=== PATIENT | male | born 1960 | race Caucasian/White ===

== ENCOUNTER 2025-01-28 09:11 | Emergency (ER) | payer OTHER, SELFPAY ==
[2025-01-28 09:12] VITALS: BP 145/92
[2025-01-28 10:19] VITALS: BMI 24.5
--- NOTE | 2025-01-28 10:20 | ED.GENMED ---
History of Present Illness
General
Chief Complaint: Abdominal Symptoms
Source: patient
Exam Limitations: none
Time Seen by Provider: 01/28/25 09:37
Nursing documentation reviewed up to this point in time: agreed with
History of Present Illness
History of Present Illness:
64-year-old male presenting to the emergency department today with concerns of nausea and vomiting over the past 2 weeks ever since he broke up with his girlfriend which she claims caused a lot of anxiety and stress. Denies any diarrhea no chest
pain or shortness of breath no fevers.
Review of Systems
Review of Systems
Allergies reviewed?: Yes
All Other Systems: ROS reviewed and negative except as documented in HPI and ROS
Phy Exam
Physical Exam
Physical Exam:
GENERAL: Alert , in no apparent distress
EYE: pupils equal and reactive
NECK: Supple, no significant adenopathy.
ENT: o/p clr, mmm.
CARDIAC: Regular rate and rhythm .
LUNGS: Clear breath sounds bilaterally, no acute respiratory distress, no wheezes/rales/rhonchi
ABDOMEN: Soft, without focal tenderness, no r/g, no cvat
NEUROLOGICAL: Alert and oriented, no focal neuro deficits
SKIN: Warm and dry, skin intact.
MUSCULOSKELETAL: No edema, well perfused.
PSYCH: Normal and appropriate interaction.
Course
Orders/Labs/Results
Orders:
Orders
01/28/25 09:54
0.9% Sodium Chloride 1000 ml [Nss] 1,000 ml IV BOLUS
Famotidine [Pepcid] 20 mg IV NOW STA
Ondansetron Injectable [Zofran] 4 mg IV NOW STA
01/28/25 10:23
Complete Blood Count/With Diff Urgent
Comprehensive Metabolic Panel Urgent
Lipase Urgent
01/28/25 12:47
Urinalysis Reflex To Culture Urgent
Date Specimen was Collected: 01/28/25
Time Specimen was Collected: 11:43
Urine Microscopic Reflex Cult Urgent
01/28/25 12:52
US Abdomen Complete/Upper Urgent
Comment:
Reason For Exam: vomiting, elevated bili
Abnormal Lab Results
01/28/25 01/28/25
10:23 12:47
RBC 3.93 L 10^6/uL
(4.70-6.10)
Hct 37.7 L %
(39.0-52.0)
MCV 95.9 H fL
(80.0-94.0)
MCH 34.9 H pg
(27.0-31.0)
Plt Count 103 L 10^3/uL
(130-400)
MPV 11.0 H fL
(7.4-10.4)
Abs Immat Gran (auto) 0.1 H 10^3/uL
(0-0.05)
Absolute Lymphs (auto) 0.7 L 10^3/uL
(1.2-3.4)
Absolute Monos (auto) 1.0 H 10^3/uL
(0.1-0.6)
Immature Gran % 0.6 H %
(0-0.5)
Neutrophils % 78.6 H %
(42.2-75.2)
Lymphocytes % 8.2 L %
(20.5-51.1)
Monocytes % 12.0 H %
(1.7-9.3)
Sodium 134 L mmol/L
(135-145)
Chloride 94 L mmol/L
(98-107)
Total Bilirubin 2.4 H mg/dl
(0.2-1.3)
AST 125 H U/L
(17-59)
Urine Ketones 1+ A
(Negative)
Urine Urobilinogen 4+ A
(Neg - 1+)
Urine Albumin (Reflex) 2+ A
(Neg - Trace)
01/28/25 10:23
01/28/25 10:23
Vital Signs
Initial and Last Documented VS:
Initial Vital Signs
Temp Pulse Resp BP Pulse Ox
98.6 F 63 16 145/92 98
01/28/25 09:12 01/28/25 09:12 01/28/25 09:12 01/28/25 09:12 01/28/25 09:12
Last Documented Vital Signs
Temp Pulse Resp BP Pulse Ox
98.6 F 63 16 161/97 96
01/28/25 09:12 01/28/25 09:12 01/28/25 09:12 01/28/25 10:27 01/28/25 11:30
MDM/Problems Addressed
MDM/Problems Addressed:
64-year-old male presenting to the emergency department today with concerns of 2 weeks of nausea and decreased oral intake. No abdominal pain no chest pain or shortness of breath no fevers. Initial vital signs normal. Patient no distress no
reproducible pain to the abdomen. Labs without emergent findings other than slightly elevated bilirubin level. Ultrasound was performed that did not show any emergent findings. He does appear stable for outpatient follow-up well-appearing
throughout ER stay. Return precautions given.
*Critical Care Note
Total Time (30-74mins, 75-104mins- exclusive of procedures): Not Applicable
ED Attending Note
-
Portions of this chart may have been created with voice recognition software.� Occasional wrong word or��sound alike� substitutions may have occurred due to the inherent limitations of voice recognition software.
Discharge Plan
Departure
Patient Disposition: Home (Routine Discharge)
Date of Disposition: 01/28/25
Time of Disposition: 15:12
Patient with high blood pressure during this ER visit?: No
Condition: Good
Covid-19: Not Applicable
Discharge Problem:
Vomiting
Instructions: Nausea and Vomiting, Adult (DC)
Referrals:
Andrew Perez MD [Family Provider, [facility]]
Activity Restrictions/Additional Instructions:
You came to the emergency department today with concerns of GI symptoms. Here you have a reassuring assessment. Please follow closely with your primary care doctor. Return for any worsening, new or concerning symptoms.
Interventions
Interventions:
*Risk Screen - Suicide Last Done: 01/28/25 09:14
*General Assessment Last Done: 01/28/25 09:14
*Neglect/Abuse Screening Last Done: 01/28/25 09:14
*ED- Fall Risk Assessment Last Done: 01/28/25 10:20
*ED COVID-19 Vaccine History Last Done: 01/28/25 10:20
EE-Hcvrvs-Ofowkqfrzi Assessment Last Done: 01/28/25 10:20
Discharge Date and Time
Print Language: DJIBOUTIAN
[2025-01-28] MEDS: NSS 1000 IV (10:24)
[2025-01-28] MEDS: ZOFRAN 4 MG IV (10:25)
[2025-01-28] MEDS: PEPCID 20 MG IV (10:25)
[2025-01-28 10:27] VITALS: BP 161/97
[2025-01-28 10:43] LABS: % Basophils 0.5 % (0-2); % Eosinophils 0.1 % (0-6); % Immature Granulocytes 0.6 % (0-0.5); % Lymphocytes 8.2 % (20.5-51.1); % Neutrophils 78.6 % (42.2-75.2); Absolute Immature Granulocytes 0.1 10^3/uL (0-0.05); Absolute Lymphocytes 0.7 10^3/uL (1.2-3.4); Absolute Neutrophils 6.2 10^3/uL (1.4-6.5); Hematocrit 37.7 % (39.0-52.0); Hemoglobin 13.7 g/dL (13.0-18.0); Mean Corp Hgb Conc. 36.3 g/dL (33.0-37.0); Mean Corpuscular Hgb 34.9 pg (27.0-31.0); Mean Corpuscular Volume 95.9 fL (80.0-94.0); Nucleated Red Blood Cells % 0 % (-); Platelet Count 103 10^3/uL (130-400); Red Blood Cell Count 3.93 10^6/uL (4.70-6.10); Red Cell Dist. Width 12.5 % (11.5-14.5); White Blood Cell Count 7.9 10^3/uL (4.8-10.8)
[2025-01-28 10:57] LABS: ALT (SGPT) 50 U/L (0-50); AST (SGOT) 125 U/L (17-59); Albumin 4.7 g/dl (3.5-5.0); Alkaline Phosphatase 52 U/L (38-126); Blood Urea Nitrogen 17 mg/dl (9-20); Calcium 9.1 mg/dl (8.4-10.2); Carbon Dioxide 28 mmol/L (22-30); Chloride 94 mmol/L (98-107); Estimated Creatinine Clearance 93 ml/min; Glucose 97 mg/dl (70-99); Lipase 166 U/L (23-300); Potassium 3.7 mmol/L (3.5-5.1); Sodium 134 mmol/L (135-145); Total Bilirubin 2.4 mg/dl (0.2-1.3); Total Protein 7.5 g/dl (6.3-8.2); eGFR > 60.00
[2025-01-28 13:01] LABS: Urine Albumin 2+ (Neg - Trace); Urine Bilirubin Negative (Negative); Urine Character Clear (Clear); Urine Color Yellow; Urine Glucose Negative (Negative); Urine Ketone 1+ (Negative); Urine Leukocyte Negative (Negative); Urine Nitrite Negative (Negative); Urine Occult Blood Negative (Negative); Urine Urobilinogen 4+ (Neg - 1+)
[2025-01-28 13:20] LABS: Urine Red Blood Cell 0-2 /HPF (0-2); Urine Squamous Cell 0-2 /LPF (Few); Urine White Cell 0-2 /HPF (0-5)
== END 2025-01-28 15:18 | disposition home or self-care (01) ==
LOC: EMR 09:11
PROVIDERS: Physician Assistant; EMERGENCY PHYSICIAN Emergency Medicine; FAMILY PHYSICIAN Family Medicine
DX: R11.2 Nausea with vomiting, unspecified (principal); R17 Unspecified jaundice
CPT/HCPCS: 96374; 96375; 96361; 99284; 76700; 80053; 81003; 81015; 83690; 85025

== ENCOUNTER 2025-02-12 13:08 | Inpatient (IN) | payer OTHER, SELFPAY ==
[2025-02-12] VITALS (41 sets, daily range): BP systolic 109–175; BP diastolic 78–129; PULSE 2–176
[2025-02-12] MEDS: CARDIZEM 5 MG IV (11:21)
--- NOTE | 2025-02-12 11:22 | ED.GENMED ---
History of Present Illness
General
Chief Complaint: Breathing Problem
Source: patient
Exam Limitations: none
Time Seen by Provider: 02/12/25 11:19
Nursing documentation reviewed up to this point in time: agreed with
History of Present Illness
History of Present Illness:
Note:
CHIEF COMPLAINT(S)
Shortness of breath.
HISTORY OF PRESENT ILLNESS
The patient is a 64-year-old male with a history of vaping, who presents with acute onset shortness of breath that began overnight. The patient describes an inability to breathe comfortably, which prompted a call to emergency services. Initial
oxygen saturation was noted to be in the low 50s on room air, prompting administration by EMS of supplemental oxygen via a non-rebreather mask, resulting in improvement to 90%. Initially hypertensive, nitroglycerin drip improved breathing and blood
pressure. Coarse crackles were noted bilaterally upon chest auscultation. The patient reports recent symptoms consistent with a cold, including congestion, prior to this episode.
ADDITIONAL HISTORY OBTAINED FROM SOURCES OTHER THAN THE PATIENT
Per EMS, the patient was found with significant respiratory distress and hypertension following cold-like symptoms. Initial interventions included oxygen therapy and nitroglycerin administration.
REVIEW OF SYSTEMS
- Respiratory: Shortness of breath, improved with oxygen.
- Cardiovascular: Hypotension noted with improvement post-nitroglycerin.
- General: Cold-like symptoms preceding the acute episode.
PHYSICAL EXAM
-Physical Exam
General: Severe respiratory distress, ill-appearing
Neck: supple. no meningeal signs. normal posterior pharynx
Heart: s1/s2 irregular rhythm, tachycardia
HEENT: Pupils equal round reactive to light, EOMI
Lungs: Severe respiratory distress. Rales bilaterally
Abdomen: normal bowel sounds. not tender. no CVAT
Neuro: alert and oriented. no focal neurological deficits cranial nerves II through XII intact
Skin: no rash
Psychiatric: well kept. interactive and cooperative
Extremities: Bilateral tibial edema. no calf tenderness. negative homans. good distal pulses
DIFFERENTIAL DIAGNOSIS
The Differential Diagnosis includes, in no particular order and is not limited to:
- Acute exacerbation of chronic obstructive pulmonary disease (COPD)
- Congestive heart failure
- Pneumonia
- Pulmonary embolism
- Acute myocardial infarction
- Asthma exacerbation
- Anaphylaxis
- Sepsis
- Pneumothorax
- Anxiety or panic attack
CARE-UPDATE
02/12/25 - 12:05
Oxygenation has improved with BiPAP. Heart rate shows mild improvement on the diltiazem drip. TASA is recorded at 5.1. Plan to administer 40 mg IV Lasix as ordered. Spent 35 minutes in critical care with the hospitalist.
Disposition:
SUMMARY OF ENCOUNTER
The patient, a 64-year-old male, presented with acute onset of shortness of breath overnight. Initial examination revealed significant respiratory distress and low oxygen saturation, which improved with supplemental oxygen.
DISPOSITION
The patient was admitted to the Intensive Care Unit for further management of respiratory failure and congestive heart failure exacerbation.
EMERGENCY TREATMENTS ADMINISTERED
Supplemental oxygen via a non-rebreather mask, administration of nitroglycerin, and IV Lasix. BiPAP was used to improve oxygenation.
REASSESSMENT
Oxygenation improved with BiPAP. Heart rate showed mild improvement on the diltiazem drip.
MEDICAL DECISION MAKING
Chronic conditions affecting care include history of smoking cessation. Differential diagnoses considered were acute exacerbation of COPD, congestive heart failure, pneumonia, and pulmonary embolism, among others.
CRITICAL CARE TIME
I provided 35 minutes of critical care time. Due to a high probability of clinically significant, life-threatening deterioration, I spent this time directly managing the patient�s acute respiratory failure and hypotension.
DIAGNOSIS
Congestive heart failure exacerbation, respiratory failure.
PATHOLOGIES TO CONSIDER
Acute myocardial infarction, sepsis, pulmonary embolism, pneumonia.
Phy Exam
Physical Exam
Physical Exam:
.
Scores
Heart Failure Risk
Heart Failure Risk Score: Yes
History of Stroke or TIA: No
History of intubation for respiratory distress: No
Heart rate on ED arrival >/= 110: Yes
SaO2 <90% on arrival on room air: Yes
HR >/=110 during 3min walk test (or too ill to perform test): Yes
ECG has acute ischemic changes: No
Urea >/=12mmol/L (BUN 33.6mg/dL): No
Serum CO2>/=35mmol/L: No
Troponin I or T elevated to ND Level (0.4mg/dL): No
NT-proBNP >/=5,000ng/L (5,000pg/ml): No
HF Risk Score: 3
Admission Status: HIGH RISK 15.9% Consider SNF treatment or admission to hospital
Course
Orders/Labs/Results
Orders:
Orders
02/12/25 Lunch
Cholesterol Lowering
Cholesterol Lowering: Sodium, 2 Gram
02/12/25 11:15
EKG [Electrocardiogram (*1)] Urgent
Reason for Study: Shortness of Breath
EKG- Treatment ONCE
02/12/25 11:16
Electrocardiogram (*1) Urgent
Reason for Study: Other
Other Reason for Exam: Respiratory Distress
Cardiac Monitoring- Treatment ONCE
EKG- Treatment ONCE
IV Insert/Care/Rem.- Treatment PRN
CR Chest Portable - 1 View Urgent
Comment:
Reason For Exam: sob
Reason Study Needs to be Portable: Unable to Transport
O2 Therapy [RESP] Urgent
Titrate/Wean O2 to maintain O2 sat greater than (%): 93
Special Instructions: TO MAINTAIN CONTINUOUS O2 SATS >/= 93%
Pulse Ox/cont/shift [RESP] Urgent
Quantity: 1
Special Instructions: continuous pulse ox
02/12/25 11:18
Complete Blood Count/With Diff Urgent
Comprehensive Metabolic Panel Urgent
Magnesium Urgent
Comment: ADD ON
NT-proBNP Urgent
Phosphorus Urgent
Comment: ADD ON
Troponin I Urgent
02/12/25 11:20
Nitroglycerin 100 mg/250 ml [Nitroglycerin Premix] 100 mg in 250 ml IV NOW
Initial dose in mcg/min, then titrate:: 50
Titrate to keep:: SBP < 160 mmHg
Titrate by mcg/min:: 5 mcg/min, may increase by 10 mcg/min if dose > 20 mcg/min
Frequency of titrations (minutes):: every 3-5 minutes
Maximum dose in mcg/min:: 200
Begin to taper infusion when:: Remained at goal for 2hrs
Taper by mcg/min:: 5 mcg/min
Frequency of taper (minutes) if patient maintains goal:: 30
Taper to off?: Yes
If infusion off & no longer maintaining goal:: Contact Provider
02/12/25 11:21
Diltiazem 125 mg/125 ml Nss [Cardizem] 125 mg in 125 ml IV NOW
Initial dose in mg/hr, then titrate:: 5
Titrate to keep:: Heart rate 80-100 bpm
Titrate by mg/hr:: 5 mg/hr
Frequency of titrations (minutes):: 15
Maximum dose in mg/hr:: 15
Diltiazem HCl [Cardizem] 5 mg IV NOW STA
02/12/25 11:38
ABG [Arterial Blood Gas] Urgent
%Oxygen/Room Air: 76
Comment: nrbr
02/12/25 12:04
Furosemide [Lasix] 40 mg IV NOW STA
02/12/25 12:36
Admit/Transfer Patient As Directed
Co-Sign Provider:
Level of Care: Inpatient admission
Assign to:: ICU
Physician / Group: [email or web address]
Diagnosis: acute hypoxic RF, acute HF, HTN emergency, fast AF, elevated TPNI,
Reason for Hospitalization: acute hypoxic RF, acute HF, HTN emergency, fast AF, elevated TPNI, mixed acidosis
Expected length of stay greater than two midnights?: Yes
ELOS- Estimated Length of Stay in days: 4
I certify the patient meets the requirements for IP care: Yes
02/12/25 12:38
Code Status As Directed
Resuscitation Status: Full Code
02/12/25 12:54
CARDIOLOGY CONSULT Routine
Consulting Provider: Rajiv Mcclendon
Was physician already notified: Yes
Reason for consult: acute HF , acute hypoxic RF
02/12/25 13:53
Electrocardiogram (*1) Q6H
Reason for Study: Chest Pain
Comment: at admission and Q6H x 2 (3 total), to be done with each troponin
Diltiazem 125 mg/125 ml Nss [Cardizem] 125 mg in 125 ml IV PER PROTOCOL
Currently infusing. Continue current dose and titrate:: Yes
Titrate to keep:: Heart rate 80-100 bpm
Titrate by mg/hr:: 5 mg/hr
Frequency of titrations (minutes):: 15
Maximum dose in mg/hr:: 15
Nitroglycerin 100 mg/250 ml [Nitroglycerin Premix] 100 mg in 250 ml IV PER PROTOCOL
Currently infusing. Continue current dose and titrate:: Yes
Titrate to keep:: SBP < 160 mmHg
Titrate by mcg/min:: 5 mcg/min, may increase by 10 mcg/min if dose > 20 mcg/min
Frequency of titrations (minutes):: every 3-5 minutes
Maximum dose in mcg/min:: 200
Begin to taper infusion when:: Remained at goal for 2hrs
Taper by mcg/min:: 5 mcg/min
Frequency of taper (minutes) if patient maintains goal:: 30
Taper to off?: Yes
If infusion off & no longer maintaining goal:: Contact Provider
02/12/25 13:53
HF DIETARY CONSULT Routine
HF EDUCATOR CONSULT Routine
Comment:
[employer]ator Consult Routine
Consulting Provider: Jay Nuñez
Was physician already notified: Yes
Reason for consult: acute HF, acute hypoxic RF, fast AF, CBC card consulted
Activity As Directed
Activity Level: With Assistance
Intake/ Output As Directed
Frequency: Per unit guidelines
Patient Education As Directed
Type: CHF folder
Comment: give on admission. Document in Interdisciplinary Education record
Sleep Apnea Assessment by RN As Directed
Comment:
Physician Instructions:
Vital Signs As Directed
Frequency: Other
Additional Instructions:: Q12 or per unit guidelines if more frequent.
Weight As Directed
Frequency: Daily
Type of Scale: Standing Scale
Comment: Daily morning weight. If unable to stand, use balanced bed scale.
Weight As Directed
Frequency: Once
Type of Scale: Standing Scale
Comment: Upon Admission. If unable to stand, use balanced bed scale.
Pulse Ox/cont/shift [RESP] Routine
Quantity: 1
Special Instructions: Daily pulse oximetry at rest. If greater than 92% at rest also obtain pulse oximetry
while ambulating as tolerated.
DX Deep Vein Thrombosis Video Routine
02/12/25 18:00
Enoxaparin Sodium [Lovenox] 40 mg SC QPM
02/12/25 19:53
Electrocardiogram (*1) Q6H
Reason for Study: Chest Pain
Comment: at admission and Q6H x 2 (3 total), to be done with each troponin
02/13/25 01:53
Electrocardiogram (*1) Q6H
Reason for Study: Chest Pain
Comment: at admission and Q6H x 2 (3 total), to be done with each troponin
02/13/25 06:00
Echo 2D MMode Color/Doppler IN AM
Reason for Study: heart failure
Electrocardiogram (*1) IN AM
Reason for Study: Other
Other Reason for Exam: heart failure
Basic Metabolic Panel IN AM
Complete Blood Count/No Diff IN AM
TSH Reflex To Free T4 IN AM
02/13/25 08:00
Furosemide [Lasix] 40 mg IV DAILY
02/14/25 06:00
Basic Metabolic Panel IN AM
02/15/25 06:00
Basic Metabolic Panel IN AM
Abnormal Lab Results
02/12/25 02/12/25
11:18 11:38
RBC 3.51 L 10^6/uL
(4.70-6.10)
Hgb 12.5 L g/dL
(13.0-18.0)
Hct 36.5 L %
(39.0-52.0)
MCV 104.0 H fL
(80.0-94.0)
MCH 35.6 H pg
(27.0-31.0)
Abs Immat Gran (auto) 0.1 H 10^3/uL
(0-0.05)
Absolute Neuts (auto) 8.0 H 10^3/uL
(1.4-6.5)
Absolute Lymphs (auto) 0.3 L 10^3/uL
(1.2-3.4)
Absolute Monos (auto) 0.8 H 10^3/uL
(0.1-0.6)
Immature Gran % 0.8 H %
(0-0.5)
Neutrophils % 86.8 H %
(42.2-75.2)
Lymphocytes % 3.3 L %
(20.5-51.1)
pH 7.34 L
(7.35-7.45)
pCO2 26 L mmHg
(35-48)
pO2 69 L mmHg
(83-108)
HCO3 14.0 L* mmol/L
(21-28)
ABG O2 Sat (Measured) 92.7 L %
(94-98)
Carbon Dioxide 14 L* mmol/L
(22-30)
Glucose 119 H mg/dl
(70-99)
Calcium 8.3 L mg/dl
(8.4-10.2)
Total Bilirubin 2.2 H mg/dl
(0.2-1.3)
AST 2401 H* U/L
(17-59)
ALT 517 H* U/L
(0-50)
Troponin I 0.074 H* ng/ml
02/12/25 11:18
02/12/25 11:18
Vital Signs
Initial and Last Documented VS:
Initial Vital Signs
Pulse Resp
189 47
02/12/25 11:23 02/12/25 11:23
Last Documented Vital Signs
Temp Pulse Resp BP Pulse Ox
97.8 F 151 36 139/85 98
02/12/25 14:14 02/12/25 13:30 02/12/25 13:30 02/12/25 13:30 02/12/25 12:45
*Pulse Oximetry
SaO2: 75
Oxygen Mode of Delivery: BiPAP
Patient hypoxic: yes
*Critical Care Note
Total Time (30-74mins, 75-104mins- exclusive of procedures): 35
comment:
Critical care statement: A total of 35 minutes of critical care time was provided for this patient. This includes management of unstable vital signs, evaluation of the patient at bedside, reviewing the patient's pertinent medical records, discussion
with consultants, review of old EKGs and review of pertinent medical records. This time with separate from time utilized to perform the aforementioned documented procedures
Patient Management
Social determinants of health affecting care: Living situation, Substance abuse (Vaping) and Strong social support
Discussion with other providers: Hospitalist
Escalation/DeEscalation of care consider admission/obs:
admit indicated to ICU
ED Attending Note
-
Portions of this chart may have been created with voice recognition software.� Occasional wrong word or��sound alike� substitutions may have occurred due to the inherent limitations of voice recognition software.
Discharge Plan
Departure
Patient Disposition: Admit
Date of Disposition: 02/12/25
Time of Disposition: 12:06
Admit to: ICU
Presentation/result/management discussed w/ accepting MD/DO: Hospitalist
Patient with high blood pressure during this ER visit?: Yes
Condition: Serious
Discharge Problem:
Respiratory failure, Atrial fibrillation with rapid ventricular response, Acute exacerbation of CHF (congestive heart failure)
Interventions
Interventions:
*General Assessment Last Done: 02/12/25 11:45
*Neglect/Abuse Screening Last Done: 02/12/25 11:45
*ED- Fall Risk Assessment Last Done: 02/12/25 11:45
*ED COVID-19 Vaccine History Last Done: 02/12/25 11:45
*Nursing Disposition Last Done: 02/12/25 14:07
ED- Cardiac Assessment Last Done: 02/12/25 11:35
ED- Pulmonary Assessment Last Done: 02/12/25 11:35
Discharge Date and Time
Discharge Date/Time: 02/12/25 14:07
[2025-02-12] MEDS: NITROGLYCERIN PREMIX 250 IV (11:24)
[2025-02-12 11:38] LABS: % Basophils 0.8 % (0-2); % Immature Granulocytes 0.8 % (0-0.5); % Lymphocytes 3.3 % (20.5-51.1); % Monocytes 8.3 % (1.7-9.3); % Neutrophils 86.8 % (42.2-75.2); Absolute Basophils 0.1 10^3/uL (0-0.2); Absolute Immature Granulocytes 0.1 10^3/uL (0-0.05); Absolute Lymphocytes 0.3 10^3/uL (1.2-3.4); Absolute Monocytes 0.8 10^3/uL (0.1-0.6); Hematocrit 36.5 % (39.0-52.0); Hemoglobin 12.5 g/dL (13.0-18.0); Mean Corp Hgb Conc. 34.2 g/dL (33.0-37.0); Mean Corpuscular Hgb 35.6 pg (27.0-31.0); Mean Platelet Volume 9.4 fL (7.4-10.4); Nucleated Red Blood Cells % 0.2 % (-); Platelet Count 341 10^3/uL (130-400); Red Blood Cell Count 3.51 10^6/uL (4.70-6.10); Red Cell Dist. Width 14.4 % (11.5-14.5); White Blood Cell Count 9.2 10^3/uL (4.8-10.8)
[2025-02-12] MEDS: CARDIZEM 125 IV ×2 (11:43→18:06)
[2025-02-12 11:52] LABS: B.E. -10.1 mmol/L; O2 Saturation % 92.7 % (94-98); PCO2 26 mmHg (35-48); PO2 69 mmHg (83-108); pH 7.34 (7.35-7.45)
[2025-02-12 11:55] LABS: O2 Therapy %Oxygen/Room Air 76
[2025-02-12 11:56] LABS: ALT (SGPT) 517 U/L (0-50); Albumin 4.2 g/dl (3.5-5.0); Alkaline Phosphatase 61 U/L (38-126); Blood Urea Nitrogen 19 mg/dl (9-20); Calcium 8.3 mg/dl (8.4-10.2); Carbon Dioxide 14 mmol/L (22-30); Chloride 106 mmol/L (98-107); Glucose 119 mg/dl (70-99); Potassium 5.1 mmol/L (3.5-5.1); Sodium 138 mmol/L (135-145); Total Bilirubin 2.2 mg/dl (0.2-1.3); Total Protein 6.6 g/dl (6.3-8.2); eGFR > 60.00
[2025-02-12 12:08] LABS: NT-proBNP 4510 pg/ml; Troponin I 0.074 ng/ml
[2025-02-12] MEDS: LASIX 40 MG IV ×2 (12:13→17:34)
--- NOTE | 2025-02-12 12:19 | HPS.HSE ---
Addendum entered and electronically signed by Ralph Jimenez MD 02/13/25 08:33:
US Abdominal Doppler Only
INDICATION: Elevated LFTs
TECHNIQUE: Grayscale color and Doppler imaging was performed.
FINDINGS: The hepatic veins and portal veins have normal flow and direction of flow. The hepatic artery has a normal low-resistance waveform.
IMPRESSION: Unremarkable Doppler examination.
Addendum entered and electronically signed by Ralph Jimenez MD 02/12/25 13:30:
Laboratory Tests
02/12/25
11:18
Total Bilirubin 2.2 H
AST 2401 H*
ALT 517 H*
Alkaline Phosphatase 61
DDX; It is hepatocellular pattern - ALI ?? due to current hemodynamic state vs. ETOH - uncertain
Nl AKP, TB 2.2
afebrile -
- US abdo
- GI consult
Original Note:
Family Physician
-
Family Physician:
Chief Complaint
-
acute resp distress
History of Present Illness
64M, no establish Dr follow up, HX vaping
- pw acute onset shortness of breath that began overnight.
- describes an inability to breathe comfortably, which prompted a call to emergency services.
Per EMS:
- Initial O2 sat low 50s on room air, prompting administration by EMS of supplemental oxygen via a non-rebreather mask, resulting in improvement to 90%.
- Initially hypertensive, nitroglycerin drip improved breathing and blood pressure.
- Coarse crackles were noted bilaterally upon chest auscultation. The patient reports recent symptoms consistent with a cold, including congestion, prior to this episode.
Medical History
Past Medical History
Past Medical History: Reports Other (he did not see Dr regularly )
Past Surgical History: Reports Other
Social History
Tobacco: Vaping
Alcohol: Occasional
Family History
Family History: Not pertinent
Allergies / Home Medications
Allergies reflects when Allergies were last updated in [facility].
Home Medications with original date entered in [facility]
Allergy/Medication List:
Allergies
Allergy/AdvReac Type Severity Reaction Status Date / Time
No Known Allergies Allergy Unverified 02/12/25 11:44
Home Medications
No Meds [No Current Medications] 02/12/25
If medication reconciliation has not been performed, why?: Medication List N/A
Review of Systems
-
Constitutional: Reports No Symptoms
EENT: Reports No Symptoms
Respiratory: Reports See HPI and Trouble Breathing
Cardiac: Reports No Symptoms
Abdomen/GI: Reports No Symptoms
: Reports No Symptoms
Musculoskeletal: Reports No Symptoms
Skin: Reports No Symptoms
Neurological: Reports No Symptoms
Endocrine: Reports No Symptoms
Hematologic/Lymphatic: Reports No Symptoms
Psych: Reports No Symptoms
Physical Exam
Vital Signs
Vital Signs
Pulse Resp BP Pulse Ox
176 42 150/100 75
02/12/25 12:13 02/12/25 11:45 02/12/25 12:13 02/12/25 12:12
Physical Exam
General: Respiratory Distress and Other (wearing BipAP)
HEENT: Other (supple )
Respiratory: Rales (both lungs )
Cardiac: S1/S2 and Irregular Rhythm
GI: Soft, Non Tender, Non Distended and Normal Bowel Sounds
Neuro: Awake, Alert and AO x 3
Psych: Intact Judgment/Insight
Laboratory Results
-
02/12/25 11:18
02/12/25 11:18
Laboratory Results
pH 7.34 (7.35-7.45) L 02/12/25 11:38
pCO2 26 mmHg (35-48) L 02/12/25 11:38
pO2 69 mmHg (83-108) L 02/12/25 11:38
HCO3 14.0 mmol/L (21-28) L* 02/12/25 11:38
Total Bilirubin 2.2 mg/dl (0.2-1.3) H 02/12/25 11:18
ALT 517 U/L (0-50) H* 02/12/25 11:18
Alkaline Phosphatase 61 U/L (38-126) 02/12/25 11:18
Troponin I 0.074 ng/ml H* 02/12/25 11:18
Data Reviewed
-
Diagnostic Radiology: Report Reviewed by me
Medical Tests (Nuc Med, Echo, EKG etc): Report Reviewed by me
Lab Data: Labs Reviewed by me
Impression/Plan
-
Vital Signs
Pulse Resp BP Pulse Ox
176 42 150/100 75
02/12/25 12:13 02/12/25 11:45 02/12/25 12:13 02/12/25 12:12
Laboratory Tests
01/28/25 02/12/25 02/12/25
10:23 11:18 11:38
Hgb 13.7 12.5 L
MCV 95.9 H 104.0 H
Plt Count 103 L 341
pH 7.34 L
pCO2 26 L
pO2 69 L
HCO3 14.0 L*
Sodium 134 L 138
Potassium 3.7 5.1
Chloride 94 L 106
Carbon Dioxide 28 14 L*
Creatinine 0.9 1.1
eGFR > 60.00 > 60.00
Calcium 8.3 L
ALT 517 H*
Alkaline Phosphatase 61
Troponin I 0.074 H*
Aul-F-Rrnijtbwvhk Pept 4510
EKG
ATRIAL FIBRILLATION WITH RAPID VENTRICULAR RESPONSE
LEFT AXIS DEVIATION
PULMONARY DISEASE PATTERN
MINIMAL VOLTAGE CRITERIA FOR LVH, MAY BE NORMAL VARIANT ( [employer] product )
ABNORMAL QRS-T ANGLE, CONSIDER PRIMARY T WAVE ABNORMALITY
ABNORMAL ECG
NO PREVIOUS ECGS AVAILABLE
Confirmed by ALEJANDRA VINES, RACQUEL ([id number]) on 02/12/2025 11:18:25 AM
CXR
Moderate pulmonary interstitial edema. Cannot rule out component of underlying chronic interstitial lung disease.
NO PRIOR hospitalist admission:
ASSESSMENT & PLAN
Pending Rx reconciliation
Acute Hypoxic RF due to acute HF type unknown: clinically improved on BiPAP requiring BiPAP, IV lasix
Fast AF
HTN emergency
Elevated TPNI
Elevated proBNP
Hyperkalemia due to acidosis suspect mixed
Preserved renal function
- IV Lasix 40 daily : f/u Wt, IO, daily BMP
- ECHO in AM
- c/w Diltiazem gtt
- c/w NTG gtt
- Trend TPNI, BMP
- ICU level care
- CBC Card consulted
- ICU consulted
DVT Px: LMWH
Code:Full
ICU
Total Critical Care Time__50___ minutes. I was immediately available to the patient and staff. I personally examined, reviewed labs, diagnostic images/reports, interpretations, treatment plans, discussed patient care with other providers and
family or caregivers (if patient is unable to make decisions), entered orders as appropriate and documented the medical record.
[2025-02-12 12:51] LABS: AST (SGOT) 2401 U/L (17-59)
--- NOTE | 2025-02-12 13:16 | CON.CAR ---
Addendum entered and electronically signed by Rajiv Mcclendon MD 02/12/25 16:11:
I saw and examined the patient.
The [employer]'s note was reviewed and I agree with the note.
Comment: 64 y/o male with depression/anxiety/panic attacks who is here for evaluation of 4 days of SOB. He was found to be in A-fib with RVR with heart rates up to about 200 bpm as well as hypertension and acute heart failure exacerbation.
He remains on diltiazem drip. He tells me that his last drink was maybe 30 days ago, however, I would recommend a CIWA protocol given his presentation.
- IV diuresis
- Echocardiogram when heart rates better controlled
- Continue dill drip for now
- elevated trop likely nonischemic myocardial injury in the setting of fast atrial fibrillation, possible withdrawal, heart failure acute exacerbation
Original Note:
Consultation
Consultation Request
Date/Time Consultation Requested: 02/12/25 1254
Date/Time Consultation Performed: 02/12/25 1300
Requesting Provider: Dr. Jimenez
Performing Provider: Henrietta OCAMPO for Dr. Mcclendon
Reason for Consultation: AFIB, CHF
Medical History
-
Chief Complaint: SOB
History of Present Illness:
64 y/o male with depression/anxiety/panic attacks who is here for evaluation of 4 days of SOB. He has also had diaphoresis. He denies any CP or palpitations. His O2 sats on arrival were in 50's. He is on biPAP and received a dose of IV lasix and
nitro drip, with elevated BP. He has AFIB with RVR and is on diltiazem drip. His primary care physician is Dr. Perez.
Past Medical History
Past Medical History: Psychiatric
Social History
Tobacco: Vaping (currently vapes tobacco, used to smoke cigarettes prior to vaping )
Alcohol: Former (quit 1 month ago- he said bottle of wine EOD, neighbor/friend said 1L wine every day)
Drug: None
Family History
Family History: Reviewed & Not Pertinent
Allergies / Home Medications
Allergy/AdvReac Type Severity Reaction Status Date / Time
No Known Allergies Allergy Unverified 02/12/25 11:44
�Medication �Instructions �Recorded �Confirmed �Type
No Meds [No Current Medications] 02/12/25 02/12/25 History
Review of Systems
-
History Source: Patient
All other systems: Negative unless noted
Respiratory: Trouble Breathing
Cardiac: Diaphoresis
Physical Exam
Vital Signs
Pulse Resp BP Pulse Ox
162 42 134/78 98
02/12/25 12:45 02/12/25 12:45 02/12/25 12:45 02/12/25 12:45
Lab Results
02/12/25 11:18
02/12/25 11:18
Troponin I 0.074 ng/ml H* 02/12/25 11:18
Obh-B-Iabgjfhjsgm Pept 4510 pg/ml 02/12/25 11:18
Physical Exam
General: Well Developed
HEENT: Normocephalic and Anicteric
Respiratory: Other (on BiPAP, increased WOB, coarse lung sounds)
Cardiac: Irregular Rhythm
Skin: Warm and Dry
Neuro: AO x 3
Psych: Calm
Impression / Plan
-
Acute, hypoxic respiratory failure:
-currently on bipap, IV nitro, IV lasix
-CHF management as below
-also with hx smoking, could have COPD component
Acute HF, type unknown:
-IV diuresis, which requires intensive monitoring- diuresed well with first dose lasix 40 mg today- will order another dose for tonight- monitor response
-obtain echo tomorrow, once HR better
AFIB with RVR:
-continue IV diltiazem for now, which requires intensive monitoring
-[id number] score is 2 for CHF - we discussed stroke risk and AC and will start IV heparin, which also requires intensive monitoring
Elevated BP:
-denies hx HTN, but certainly hypertensive here
-monitor on current IV medications
Abnormal liver function:
-GI consulted
-hx ETOH use disorder
Abnormal troponin:
-denies CP
-trend to peak
-suspect acute, non-ischemic myocardial injury in setting of hypoxia, CHF, tachycardia
Tobacco abuse:
-needs education on total cessation prior to d/c
ETOH use disorder:
-needs education on continued cessation prior to d/c
Data Reviewed
-
EKG: Tracing Personally Visualized and interpreted (AFIB with RVR)
Radiology: Report Reviewed by me (CXR: Moderate pulmonary interstitial edema. Cannot rule out component of underlying chronic interstitial lung disease.)
Medical Tests (Nuc Med, Echo etc): Other (echo is ordered.)
Labs: Labs Reviewed by me
--- NOTE | 2025-02-12 14:00 | PTCARENOTE ---
Pt arrived from ED with BiPap 08/12 with 14 liters oxygen. He is tremulous and attributed that to nervousness. He is awake and alert. Answering questions appropriately. Left wrist with Nitroglycerin @40mcg/min and left AC prehospital site with
Cardizem 15mg/hr. Good peripheral pulses, no edema. Lungs CTA. +BSX4. C/O thirst. He verbalized that he has been depressed and anxious and has had some panic attacks at home. He stated he has an appointment with his therapist o February 24. He was
instructed to keep that appointment. He was also informed that he is admitted with heart failure and that the plan for the next 24-48 hours is to get excess fluid off of him using diuretics and treat his HTN with NTG to dilate his vessels. He stated
Afib is new for him as well. I informed him to expect the care team to add Heparin the prevent blood clots from forming in his heart, due to Afib. I stressed the importance of him abstaining from Vaping due to the known lung problems vaping causes.
He verbalized his understanding. Afib and Heart failure packets were provided. His friend Barak is at the bedside adn she too was informed of the plan of care. Safe environment maintained.
[2025-02-12 14:21] LABS: Glucose - Point of Care 128 mg/dl (70-99)
--- NOTE | 2025-02-12 14:37 | CON.INTV ---
Addendum entered and electronically signed by Jay Nuñez MD 02/12/25 15:08:
Patient reports having a common cold recently
Obtain COVID-19, influenza testing.
Original Note:
Consultation
Consultation Request
Date/Time Consultation Requested: 02/12/2025
Date/Time Consultation Performed: 02/12/2025
Requesting Provider: Dr. Jimenez
Performing Provider: Dr. Jay Stearns
Reason for Consultation: Acute hypoxemic respiratory failure
Medical History
-
History of Present Illness:
64-year-old male with history of depression/anxiety, alcohol abuse who presented to the hospital with 4-day history of shortness of breath. Reported diaphoresis. Denies chest pain or palpitations or lightheadedness. He was found to be hypoxemic
with pulse ox in the 50s on arrival. Due to increased work of breathing BiPAP was started. Chest x-ray demonstrated pulmonary vascular congestion. He was found to be in rapid ventricular response atrial fibrillation. He was diuresed.
Patient states that his last drink was a month ago.
He quit smoking greater than 20 years ago.
Past Medical History
Past Medical History: Other (See assessment and plan/does not take any medication)
Social History
Tobacco: Vaping (Former smoker)
Alcohol: None (Quit 1 month ago)
Drug: None
Family History
Family History: Reviewed & Not Pertinent
Allergies / Home Medications
Allergies
Allergy/AdvReac Type Severity Reaction Status Date / Time
No Known Allergies Allergy Unverified 02/12/25 11:44
Home Medications
�Medication �Instructions �Recorded �Confirmed �Last Taken �Type
No Meds [No Current Medications] 02/12/25 02/12/25 Unknown History
Review of Systems
-
History Source: Patient
All other systems: Negative unless noted
Vitals / Labs / Diagnostic Testing
Vital Signs
Temp Pulse Resp BP Pulse Ox
97.8 F 151 36 139/85 98
02/12/25 14:14 02/12/25 13:30 02/12/25 13:30 02/12/25 13:30 02/12/25 12:45
Lab Data
02/12/25 11:18
02/12/25 11:18
Laboratory Results
02/12/25
11:38
pH 7.34 L
pCO2 26 L
pO2 69 L
HCO3 14.0 L*
O2 Delivery Level %oxygen/room air 76
Diagnostic Testing:
Physical Exam
-
HEENT: Normocephalic
Cardiovascular: Irregular Rhythm
Respiratory: Wheeze (None) and Rales
GI: Soft and Non Distended
Neurology: Awake, Alert, No Motor Deficits, Tremors and Other (Appears anxious)
Skin: Warm
General: Respiratory Distress (Severe)
Assessment
-
64-year-old man who denies any significant past medical history other than anxiety depression comes to the hospital with 4-day history of shortness of breath. Found to be significant hypoxemic with pulse ox in the 50s. Required oxygen plantation,
BiPAP for increased work of breathing. Chest x-ray consistent with heart failure, proBNP elevated, abnormal LFTs. He reports he stopped drinking alcohol about a month ago.
Transferred to the critical care unit for noninvasive mechanical ventilation and additional management.
Acute hypoxemic respiratory failure-requiringNoninvasive mechanical ventilation and supplemental oxygen.
AB.
Chest x-ray: Pulmonary vascular congestion
Acute heart failure unknown type-suspect
Elevated proBNP
Mildly increased troponin
Rapid atrial fibrillation-new onset
Abnormal LFTs: Significant transaminitis
AST 2400/ALT 517
Right upper quadrant ultrasound 01/28/2025: Fatty liver. No acute abnormalities.
Metabolic acidosis-elevated anion gap
History of alcohol abuse-reports last drink a ?month ago-cannot rule out alcohol withdrawal
Former smoker quit less than 20 years ago currently vaping
No PFT available
Chest x-ray without hyperinflation
Assessment and plan:
Critically ill: Recurrent noninvasive mechanical ventilation, on rapid atrial fibrillation. Clinical picture suggestive of acute heart failure unknown type.
Ischemic, alcoholic cardiomyopathy possibility
-
Acute heart failure-unknown type: Rapid atrial fibrillation-new onset.
Case discussed with cardiology
Cardizem started by cardiology for heart rate control
Heparin will be started
Diuresis will continue
Echocardiogram has been ordered
Trend cardiac enzymes-currently denies any chest pain.
Nitroglycerin drip will continue for blood pressure control-will be titrated as necessary.
-
Continue noninvasive mechanical ventilation as needed for increased work of breathing.
ABG mixed respiratory disorder
Not bronchospastic on exam
Continue supplemental oxygen to maintain pulse ox above 90%.
Patient mentating well-appears anxious
-
Transaminitis: Unclear etiology.
Obtain total CK
Patient reports history of alcohol abuse but stopped about a month ago per his report. Unclear if there is alcohol hepatitis on top of low perfusion from? Heart failure.
Patient never hypotensive.
Denies taking Tylenol or NSAIDs.
Benign abdominal exam
Wait for echocardiogram result
If LFTs remain elevated after cardiac stabilization further evaluation such as hepatitis panel etc. will be needed.
Recent right upper quadrant ultrasound in early January without Significant abnormalities other than fatty liver.
-
Anion gap metabolic acidosis:
Normal renal function, not hypotensive. No evidence for infection
Patient does not take any medication
Obtain lactate level
Continue with cardiac management for now.
If there is ongoing increased work of breathing, will give some bicarbonate.
Repeat BMP at 6 PM
-
Former smoker quit 20 years ago. Vaping.
Not hyperinflated
Not Bronchospastic on Exam.
No indication for systemic corticosteroids at this point
Will continue to follow closely
Avoid beta agonist
-
Patient tremulous-anxious. Cannot rule out alcohol withdrawal component.
May use Ativan as needed
[facility] protocol for now
Alcohol level
UDS
-
N.p.o.-okay with sips of water
-
Critical care statement: A total of 45 minutes of critical care time was provided for this patient today. This includes management of unstable vital signs, evaluation of the patient at bedside, reviewing the patient's pertinent medical records
including ventilator settings, arterial blood gases, radiographs, microbiology, laboratory evaluations and discussion with primary team, critical care nursing, and respiratory therapy.
[2025-02-12 14:53] LABS: Magnesium 1.5 mg/dl (1.6-2.3); Phosphorus 4.4 mg/dl (2.5-4.5)
--- NOTE | 2025-02-12 15:20 | CM ---
Initial assessment completed with patient who lives alone in a 5th floor apartement in an elevator building with 1 step to enter. [employer] patient was independent in ADL's and ambulation, drives. No DME or in-home services. No HC-POA, no
service Support system is family that lives nearby. PC is Dr. Andrew Perez and Pharmacy is [facility] in [place]. Discharge POC: TBD.
[2025-02-12] MEDS: HEPARIN 4000 UNITS IV (15:39)
[2025-02-12] MEDS: HEPARIN 25000 UNITS/250 ML IV (15:39)
[2025-02-12] MEDS: ATIVAN 1 MG PO ×3 (15:44→19:37)
[2025-02-12 15:46] LABS: APTT 27.4 Sec (23.4-35.0); Alcohol 21 mg/dl; Creatine Phosphokinase 170 U/L (55-170); Lactic Acid 3.7 mmol/L (0.7-2.0)
[2025-02-12 15:50] LABS: COVID-19 Antigen Negative (Negative)
[2025-02-12 15:50] LABS: Amphetamines Negative (Negative); Barbiturates Negative (Negative); Benzodiazepines Positive (Negative); Buprenorphine Negative (Negative); Cocaine Negative (Negative); Marijuana Negative (Negative); Methadone Negative (Negative); Methamphetamines Negative (Negative); Opiates Negative (Negative); Phencyclidine Negative (Negative); Tricyclic Antidepressants Negative (Negative)
[2025-02-12 16:08] LABS: Direct Bilirubin 0.6 mg/dl (0.0-0.4)
[2025-02-12 16:12] LABS: Fentanyl, Urine Negative (Negative)
--- NOTE | 2025-02-12 16:17 | CON.GI ---
Addendum entered and electronically signed by Nitza Díaz MD 02/12/25 17:51:
The patient was seen and examined by me independently in collaboration with the nurse practitioner.
Past medical history/social history/medications/allergies/family history reviewed.
Lab data and imaging data reviewed.
64-year-old male past medical history of significant alcohol use presenting with acute shortness of breath found to be in A-fib with RVR. No GI complaints. He was found to have significant elevation of his liver enzymes including AST 2401, ALT 517,
total bilirubin 2.2, also found to have troponin 0.074, BNP 4510. Of note, he was here January 28 with nausea and vomiting and likely withdrawal symptoms and at that time his total bilirubin was 2.4, AST 125, ALT 50. I suspect the acute increase in
his LFTs are related to his acute heart failure exacerbation and atrial fibrillation leading to low flow and the liver with alcohol playing a role as well. Echo is pending. Ultrasound done showed fatty liver, Doppler with no portal vein
thrombosis. Coags have been ordered but not resulted yet.
Recommend trending liver enzymes and once we have the coags we can calculate a discriminant function. He could also have an element of acute alcoholic hepatitis although the AST and ALT elevation are more significant than would expect with acute
alcoholic hepatitis. ICU attending ordered CK which was normal. Can consider autoimmune markers if liver enzymes persistently remain elevated although low suspicion. Will add on Tylenol although low suspicion for this as well.
Original Note:
Consultation
-
Date/Time Consultation Requested: 02/12/25 1353
Date/Time Consultation Performed: 02/12/25 1600
Requesting Provider: Dr. Jimenez
Performing Provider: Dr. Díaz/Veronica OCAMPO
Reason for Consultation: elevated LFTs
Medical History
Chief Complaint / HPI
Chief Complaint: SOB
History of Present Illness:
64 y/o male with PMH panic attacks, depression, ETOH abuse (last use yesterday approx 10-12 oz vodka, previously was drinking 1-1.5 liters of wine daily and was trying to remain sober over the past 28 days), came to the ER for alcohol withdrawal sx
but said it was n/v at the time who currently presented to the ER with acute onset of SOB. The patient tells me that he has a hx of ETOH abuse and that he was drinking 1.5 liters of wine up to about 1 month ago. He quit 'cold turkey' and had
withdrawl sx. He came to ER at that time however did not divulge that information. He was sent home with antiemetics. He states that he went to 'AA' meeting and that he has been trying to stat sober, however he has been continuing to drink 'the
airplane bottles' of vodka during this time. His he did drink between 10-12 of these yesterday. He states that he became scared when he had acute onset of SOB. That is when he came to the ER. The patient was found to be in A fib with RVR. We are
asked to evaluate for elevated LFTs. Patient ETOH level is 21. He denies prior hx of LFT abnormality however does not follow regularly with physicians. T Bili 2.2, D Bili 0.6, AST 2401, ALT 517, Alk Phos 61. Trop 0.075, BNP 4510. CXR with moderate
pulmonary intersitial edema. Patient denies any current F, C, N, V, abd pain, melena, hematochezia, dysphagia or odynophagia, no early satiery or unintended weight loss. Denies any acholic stools or bilirubinuria. Denies any tattoes, piercings or
IVDA. Denies any tylenol use.
Past Medical History
Past Medical History: Other (anxiety, panic attacks, chronic ETOH abuse)
Past Surgical History: None
Social History
Tobacco: Vaping
Alcohol: Daily
Drug: None
Personal: Single
Family History
Family History: Other (no fam hx GI malignancy or IBD)
Allergies / Home Medications
Allergy/AdvReac Type Severity Reaction Status Date / Time
No Known Allergies Allergy Unverified 02/12/25 11:44
�Medication �Instructions �Recorded
No Meds [No Current Medications] 02/12/25
Review of Systems
-
All other systems: A 12 pt ROS was Negative except as stated above in HPI
Vital Signs
Temp Pulse Resp BP Pulse Ox
98.1 F 151 36 139/85 98
02/12/25 15:37 02/12/25 13:30 02/12/25 13:30 02/12/25 13:30 02/12/25 12:45
Physical Exam
Exam
General: Other (tremulous)
HEENT: Anicteric
Respiratory: Clear (decreased B/L ) and Other (on supplemental oxygen, tachypneic)
Cardiac: Irregular Rhythm (tachycardic 140's)
GI: Soft, Non Tender, Non Distended and Normal Bowel Sounds
Musculoskeletal: No Edema
Neuro: AO x 3 and Tremors
Psych: Calm
Results
WBC 9.2 10^3/uL (4.8-10.8) 02/12/25 11:18
Hgb 12.5 g/dL (13.0-18.0) L 02/12/25 11:18
Hct 36.5 % (39.0-52.0) L 02/12/25 11:18
MCV 104.0 fL (80.0-94.0) H 02/12/25 11:18
Plt Count 341 10^3/uL (130-400) 02/12/25 11:18
Absolute Neuts (auto) 8.0 10^3/uL (1.4-6.5) H 02/12/25 11:18
APTT 27.4 Sec (23.4-35.0) 02/12/25 15:20
Sodium 138 mmol/L (135-145) 02/12/25 11:18
Potassium 5.1 mmol/L (3.5-5.1) 02/12/25 11:18
Chloride 106 mmol/L (98-107) 02/12/25 11:18
Carbon Dioxide 14 mmol/L (22-30) L* 02/12/25 11:18
BUN 19 mg/dl (9-20) 02/12/25 11:18
Creatinine 1.1 mg/dL (0.7-1.3) 02/12/25 11:18
Calcium 8.3 mg/dl (8.4-10.2) L 02/12/25 11:18
Total Bilirubin 2.2 mg/dl (0.2-1.3) H 02/12/25 11:18
AST 2401 U/L (17-59) H* 02/12/25 11:18
ALT 517 U/L (0-50) H* 02/12/25 11:18
Alkaline Phosphatase 61 U/L (38-126) 02/12/25 11:18
Diagnostic Image Results:
CXR:
IMPRESSION:
Moderate pulmonary interstitial edema. Cannot rule out component of underlying chronic interstitial lung disease.
UA Abd 01/28/25:
IMPRESSION:
No gallstones identified. Biliary sludge.
No bile duct dilatation.
Fatty infiltration of liver.
Poorly visualized pancreas secondary overlying bowel gas.
Prior GI Procedures:
EGD: never
Colonoscopy: '5 years ago in [place]' , was told he does not need a repeat for '10 years'
Assessment / Plan
-
64 y/o male with PMH panic attacks, depression, ETOH abuse (last use yesterday approx 10-12 oz vodka, previously was drinking 1-1.5 liters of wine daily and was trying to remain sober over the past 28 days), came to the ER for alcohol withdrawal sx
but said it was n/v at the time who currently presented to the ER with acute onset of SOB. The patient tells me that he has a hx of ETOH abuse and that he was drinking 1.5 liters of wine up to about 1 month ago. He quit 'cold turkey' and had
withdrawl sx. He came to ER at that time however did not divulge that information. He was sent home with antiemetics. He states that he went to 'AA' meeting and that he has been trying to stat sober, however he has been continuing to drink 'the
airplane bottles' of vodka during this time. His he did drink between 10-12 of these yesterday. He states that he became scared when he had acute onset of SOB. That is when he came to the ER. The patient was found to be in A fib with RVR. We are
asked to evaluate for elevated LFTs. Patient with elevated T Bili, significantly elevated AST> ALT elevation with normal Alk phos. No abd pain, continues to drink. Afib with RVR and pulmonary edema. Unable to calculate DF as coags pending.
Impression:
Elevated LFTs
differentials include ETOH, Afib with acute HF, low flow
Plan:
-Check US Abd with dopplers
-Trend LFTs
-Check PT/INR
-Trend daily CBC, PT/INR, LFTs, BMP
-Care team updated about ETOH consumption
-Acute hepatitis panel for completeness
-Withdrawal ppx
-Discussed cessation with patient
-Further recommendations to be forthcoming
-
-
Thank you for consultation and allowing me to participate in the patient's care. Please call the consumer affairs director GI physician during the after hours with any questions or concerns.
--- NOTE | 2025-02-12 16:18 | W.PN.UPDATE ---
Update Note
Progress Note Update
With positive alcohol level, will Rx for Etoh withdrawal.
MSAS protocol
Phenobarbital taper
[2025-02-12] MEDS: MAGNESIUM SULFATE 100 IV ×2 (16:57→20:38)
[2025-02-12 18:33] LABS: Acetaminophen < 10 ug/ml (10-30); GGTP 132 U/L (15-73); Magnesium 1.2 mg/dl (1.6-2.3)
[2025-02-12 18:35] LABS: Chloride 102 mmol/L (98-107); Potassium 4.7 mmol/L (3.5-5.1); Sodium 136 mmol/L (135-145)
[2025-02-12 18:40] LABS: Blood Urea Nitrogen 19 mg/dl (9-20); Calcium 8.6 mg/dl (8.4-10.2); Carbon Dioxide 24 mmol/L (22-30); Glucose 118 mg/dl (70-99); Magnesium 1.6 mg/dl (1.6-2.3); eGFR > 60.00
[2025-02-12 18:41] LABS: B-Hydroxybutyrate 1.84 mmol/L (0.02-0.27)
[2025-02-12 18:51] LABS: Troponin I 0.093 ng/ml
[2025-02-12 18:56] LABS: Urine Albumin Negative (Neg - Trace); Urine Bilirubin Negative (Negative); Urine Character Clear (Clear); Urine Color Yellow; Urine Glucose Negative (Negative); Urine Ketone Negative (Negative); Urine Leukocyte Negative (Negative); Urine Nitrite Negative (Negative); Urine Occult Blood Negative (Negative); Urine Urobilinogen Negative (Neg - 1+)
[2025-02-12 19:03] LABS: INR 1.25
[2025-02-12] MEDS: THIAMINE INJECTION 200 MG IV (19:37)
--- NOTE | 2025-02-12 19:52 | PTCARENOTE ---
assumed care, pt Ox3, tremulous, MSAS 8, Ativan per MAR, denies pain, Afib on the monitor, +pulses, hypertensive, Cardizem, Nitro, and Hep gtts per worklist, tachypneic 94% on 6L NC, lungs coarse crackles @ bases, BIPAP HS, BSx4 round non-tender, pt
using urinal, clear yellow output, 20G B/L FA, diaphoretic and flushed, call yu within reach ot able to make needs known, otherwise refer to documentation.
[2025-02-12 20:07] LABS: Hepatitis B Surface Antigen Negative (Negative)
[2025-02-12 20:12] LABS: Hepatitis B Core Ab, IgM Negative (Negative)
[2025-02-12 20:24] LABS: Hepatitis B Surface Antibody Negative; Hepatitis C Antibody Negative (Negative)
[2025-02-12 21:04] LABS: Hepatitis A IgM Antibody Negative (Negative)
[2025-02-12] MEDS: PHENOBARBITAL 97.5 MG IV (21:06)
--- NOTE | 2025-02-12 21:39 | PTCARENOTE ---
titrating Nitro per order, SBP 109, notified provider and order to standby Nitro.
[2025-02-12 22:32] LABS: INR 1.23; PT 15.8 Sec (11.4-14.6)
[2025-02-12 22:40] LABS: Lactic Acid 1.9 mmol/L (0.7-2.0)
[2025-02-13] VITALS (38 sets, daily range): BP systolic 98–160; BP diastolic 62–118; BMI 24.2
--- NOTE | 2025-02-13 00:17 | PTCARENOTE ---
systems reviewed, gtts per worklist, latest MSAS 6 treated per MAR, labs sent, otherwise refer to documentation
[2025-02-13] MEDS: ATIVAN 1 MG PO ×4 (00:22→22:19)
[2025-02-13] MEDS: CARDIZEM 125 IV ×2 (00:43→11:27)
[2025-02-13 00:45] LABS: Troponin I 0.109 ng/ml
[2025-02-13 04:34] LABS: Hematocrit 34.1 % (39.0-52.0); Hemoglobin 12.1 g/dL (13.0-18.0); Mean Corp Hgb Conc. 35.5 g/dL (33.0-37.0); Mean Corpuscular Hgb 35.3 pg (27.0-31.0); Mean Corpuscular Volume 99.4 fL (80.0-94.0); Mean Platelet Volume 9.6 fL (7.4-10.4); Platelet Count 251 10^3/uL (130-400); Red Blood Cell Count 3.43 10^6/uL (4.70-6.10); Red Cell Dist. Width 13.4 % (11.5-14.5); White Blood Cell Count 7.3 10^3/uL (4.8-10.8)
[2025-02-13 04:35] LABS: INR 1.21; PT 15.6 Sec (11.4-14.6)
[2025-02-13 04:36] LABS: APTT 34.7 Sec (23.4-35.0)
--- NOTE | 2025-02-13 04:41 | PTCARENOTE ---
systems reviewed, MSAS per worklist, pt denies pain and states he feels better, HR between 80-100, gtts per worklist, labs sent, new IV placed, otherwise refer to documentation
[2025-02-13 04:49] LABS: ALT (SGPT) 436 U/L (0-50); Albumin 3.7 g/dl (3.5-5.0); Alkaline Phosphatase 53 U/L (38-126); Blood Urea Nitrogen 19 mg/dl (9-20); Calcium 8.3 mg/dl (8.4-10.2); Carbon Dioxide 30 mmol/L (22-30); Chloride 101 mmol/L (98-107); Direct Bilirubin 0.5 mg/dl (0.0-0.4); Estimated Creatinine Clearance 93 ml/min; Glucose 96 mg/dl (70-99); Magnesium 1.9 mg/dl (1.6-2.3); Potassium 3.8 mmol/L (3.5-5.1); Sodium 136 mmol/L (135-145); Total Bilirubin 2.3 mg/dl (0.2-1.3); Total Protein 6.2 g/dl (6.3-8.2); eGFR > 60.00
[2025-02-13 05:16] LABS: AST (SGOT) 1937 U/L (17-59); Troponin I 0.088 ng/ml
[2025-02-13 05:18] LABS: TSH Reflex To Free T4 1.46 uIU/ml (0.47-4.68)
--- NOTE | 2025-02-13 07:30 | PTCARENOTE ---
Received pt with his eyes closed. He reported a good night and that he got some sleep. His face is flushed w/mildly sweat. Tremors noted when reaching for his cup. Lungs with coarse expiratory wheeze, 6 liters nasal cannula pulse ox remains low
92-93%. HR increased to 130's while awake. Cardizem 15mg/hr and Heparin 1400units/hr. Fair appetite. Good peripheral pulses. Reinforced fluid restriction, and low salt diet. He stated 'I will do whatever I have to do to get out of here'. He will get
OOB and brush his teeth after breakfast. Safe environment maintained. Supportive care given.
[2025-02-13] MEDS: LASIX 40 MG IV (07:37)
[2025-02-13] MEDS: PHENOBARBITAL 97.5 MG IV ×3 (07:37→21:42)
[2025-02-13] MEDS: THIAMINE INJECTION 200 MG IV ×2 (07:37→19:42)
[2025-02-13] MEDS: FOLVITE 1 MG PO (07:37)
--- NOTE | 2025-02-13 09:50 | PTCARENOTE ---
Discussed the plan of care with the care team. Will replete electrolytes, & continue to taper oxygen for pulse ox>90%. Dr. Mcclendon notified via TT of his HR between 90's-130's, and unable to do ECHO until HR improved. Pt is aware of this as well.
--- NOTE | 2025-02-13 10:11 | W.PN.HOSP.TC ---
Today's Communication/Plan
-
Cardizem drip. IV Lasix. MSA protocol
Assessment / Plan
Assessment / Plan
Physical exam:
General: Acutely ill
HEENT: Normocephalic, Atraumatic and Moist Mucous Membranes
Respiratory: Bilateral coarse crackles in the bases; Negative Wheezes, Rales or Rhonchi
Cardiac: Irregular rate and rhythm, tachycardic and S1/S2
GI: Soft, Nontender and Nondistended
Musculoskeletal: No Clubbing, No Cyanosis and No Edema
Neuro: Awake, Alert and Oriented
Psych: Calm
A/P:
Acute hypoxic respiratory failure:
Multifactorial etiology heart failure, A-fib, etc.
Improving
Off BiPAP
Continue diuresis
Acute CHF, unknown type:
Continue Lasix 40 mg IV daily
On nitro drip
Monitor ins and outs and daily weight
Atrial fibrillation with rapid ventricular response:
Continue Cardizem drip
Started on Toprol
Start IV heparin drip
Cardiology following
Elevated troponin:
Elevated troponin due to non-ischemic myocardial injury due to heart failure
Elevated LFTs:
Likely related to alcohol liver disease and fatty infiltration of the liver and low flow state
Monitor trend
Alcohol abuse/Alcohol withdrawal:
MSA protocol
Phenobarbital protocol
On thiamine and folic acid
Elevated blood pressure likely related to alcohol withdrawal-monitor
Hypomagnesemia:
Replete and trend
DVT prophylaxis:
On heparin drip
CODE STATUS:
Full code
Total time spent on today's encounter was 52 minutes which included time spent in counseling the patient/family regarding diagnosis and treatment plan as listed above, goals of care, and symptom management. Case was discussed with nursing staff,
specialists, and care coordinators/case management. All labs and imaging personally reviewed by me. Remainder the time spent in detailed review of previous records, lab data, imaging, and other medical provider documentation.
Anticipated Discharge: > 48 hours
Subjective/Interval History
-
Date of Service: February 13, 2025
Patient still tachycardic. Less shortness of breath. On supplemental oxygen. Looks frail overall
Objective Data
-
Labs:
Laboratory Results
02/12/25 02/13/25 02/13/25
22:06 04:13 11:00
WBC 7.3
Hgb 12.1 L
Hct 34.1 L
Plt Count 251 D
PT 15.8 H 15.6 H
INR 1.23 1.21
APTT 32.0 34.7 Pending
Sodium 136
Potassium 3.8
Chloride 101
Carbon Dioxide 30
BUN 19
Creatinine 0.9
Glucose 96
Calcium 8.3 L
Total Bilirubin 2.3 H
AST 1937 H*
ALT 436 H
Alkaline Phosphatase 53
Vital Signs:
Vital Signs
Temp Pulse Resp BP Pulse Ox
97.6 F 123 26 121/87 95
02/13/25 07:00 02/13/25 08:01 02/13/25 08:01 02/13/25 08:01 02/13/25 08:34
I&O
02/12/25 02/13/25 02/14/25
06:59 06:59 06:59
Intake Total 1495 / 1524 207 / 207
Output Total 4005 / 4005 400 / 400
Balance -2510 / -2481 -193 / -193
--- NOTE | 2025-02-13 10:39 | W.PN.CD ---
Today's Communication / Plan
-
- Continue Heparin and Dilt drip
- Give Toprol 50 mg PO BID
- IV Metoprolol with ECHO
- ECHO today
Impression / Plan
-
Acute, hypoxic respiratory failure:
-currently on bipap, IV nitro, IV lasix
-CHF management as below
-also with hx smoking, could have COPD component
Acute HF, type unknown:
-IV diuresis, which requires intensive monitoring- diuresed well with first dose lasix 40 mg today- will order another dose for tonight- monitor response
-obtain echo today - Will give 5 mg IV metoprolol with Dilt drip and PO Toprol for TTE for better rate control for imaging
AFIB with RVR:
- Rates are poorly controlled.
- on IV diltiazem drip at 15 mg/hr , which requires intensive monitoring
- Will add Toprol 50 mg BID - combination needs intense monitoring with risk of pauses.
- [id number] score is 2 for CHF - we discussed stroke risk and AC and will start IV heparin, which also requires intensive monitoring
Elevated BP:
-denies hx HTN, but certainly hypertensive here
-monitor on current IV medications
Abnormal liver function:
-GI consulted
-hx ETOH use disorder
Abnormal troponin:
-denies CP
-trend to peak
-suspect acute, non-ischemic myocardial injury in setting of hypoxia, CHF, tachycardia
Tobacco abuse:
-needs education on total cessation prior to d/c
ETOH use disorder:
-needs education on continued cessation prior to d/c
Subjective:
His father is admitted to [facility] with AF with RVR and his girlfiend is schedule to have surgery this coming Sunday. He is apprehensive.
Physical Exam
Vital Signs/Labs
Vital Signs
Temp Pulse Resp BP Pulse Ox
97.6 F 131 20 138/104 95
0620/25 07:00 02/13/25 10:30 02/13/25 10:30 02/13/25 10:30 02/13/25 10:00
02/12/25 02/13/25 02/14/25
06:59 06:59 06:59
Actual Weight 80.9 kg
02/13/25 04:13
02/13/25 04:13
PT 15.6 Sec (11.4-14.6) H 02/13/25 04:13
INR 1.21 02/13/25 04:13
APTT 34.7 Sec (23.4-35.0) 02/13/25 04:13
Magnesium 1.9 mg/dl (1.6-2.3) 02/13/25 04:13
02/12/25
11:18
Vvi-V-Cldtdcsvmza Pept 4510
LAB Results
02/12/25 02/12/25 02/13/25
11:18 18:00 00:09
Troponin I 0.074 H* 0.093 H* D 0.109 H*
02/13/25
04:13
Troponin I 0.088 H*
Physical Exam
Constitutional: No acute distress and Comfortable
EENT: Anicteric and Moist mucous membranes
Cardiovascular: Pedal edema is absent, Rhythm/rate is irregular and Systolic murmur present
Respiratory: Respiratory effort normal and Lungs clear to auscul.
GI: Soft, Normal bowel sounds and Distention present
Neuro/Psych: Alert, Oriented, AO x 3 and Motor deficits absent
Data Reviewed
-
Date of Service: February 13, 2025
Medical Decision Making: Reviewed Test Results, Test Interpretation and Review of Case with other Provider
EKG: Tracing Personally Visualized and interpreted
Echo: Ordered by me
X-Ray/CT/US/MRI/NUC/PET: Image Personally Visualized and interpreted
Labs: Labs Reviewed by me
Old Records: Reviewed
Critical Care Time (in minutes): 35
--- NOTE | 2025-02-13 11:17 | W.PN.GI.CBS2 ---
Addendum entered and electronically signed by Kian Villela MD 02/13/25 15:44:
I saw and examined the patient.
The ACCIDENT INVESTIGATOR's note was reviewed and I agree with the note.
Elevated LFT-likely multifactorial. EtOH versus low flow state. Trending down now. Hepatitis panel negative. Fatty liver on ultrasound. Ultrasound abdomen with Doppler normal.
plan
DF less than 32. No indication for steroid
Continue trend LFT/ INR
If persistently elevated would recommend chronic liver disease workup
Alcohol withdrawal protocol as per medical team
Advised on alcohol abstinence in the future
Continue management per ICU team/cardiology
Original Note:
Today's Communication / Plan
-
as per plan
Assessment / Plan
-
64 y/o male with PMH panic attacks, depression, ETOH abuse (last use yesterday approx 10-12 oz vodka, previously was drinking 1-1.5 liters of wine daily and was trying to remain sober over the past 28 days), came to the ER for alcohol withdrawal sx
but said it was n/v at the time who currently presented to the ER with acute onset of SOB. The patient tells me that he has a hx of ETOH abuse and that he was drinking 1.5 liters of wine up to about 1 month ago. He quit 'cold turkey' and had
withdrawl sx. He came to ER at that time however did not divulge that information. He was sent home with antiemetics. He states that he went to [facility]' meeting and that he has been trying to stat sober, however he has been continuing to drink 'the
airplane bottles' of vodka during this time. His he did drink between 10-12 of these yesterday. He states that he became scared when he had acute onset of SOB. That is when he came to the ER. The patient was found to be in A fib with RVR. We are
asked to evaluate for elevated LFTs. Patient with elevated T Bili, significantly elevated AST> ALT elevation with normal Alk phos. No abd pain, continues to drink. Afib with RVR and pulmonary edema. Negative tylenol level.
Impression:
Elevated LFTs
--> likley secondary to acute HF, Afib with RVR, low flow, ETOH component current DF= 14
Plan:
-Trend daily CBC, PT/INR, LFTs, BMP
-Withdrawal ppx
-Discussed cessation with patient
-If with worsening or persistence of elevation can broaden LFT work up
-As per IM, Pulm Crit and Cardiology.
Subjective
Subjective
Date of Service: February 13, 2025
Patient without any GI complaints. Transaminases trending down, bili the same. T Bili 2.3 (2.2), D Bili 0.5 (0.6), AST 1937 (2401), ALT 436 (517), Alk Phos 53 (61). US Abd with dopplers unremarkable. Acute hepatitis panel negative. Anthony DF =
14.3. Looks much improved compared to yesterday. O2 requirements less, sitting up and in chair. No tremors. Still tachy and unable to have Echo yet.
Objective
Data Reviewed
Laboratory Data:
Laboratory Results
02/13/25 04:13
02/13/25 04:13
Laboratory Results
PT 15.6 Sec (11.4-14.6) H 02/13/25 04:13
INR 1.21 02/13/25 04:13
APTT 34.7 Sec (23.4-35.0) 02/13/25 04:13
Phosphorus 4.4 mg/dl (2.5-4.5) 02/12/25 11:18
Magnesium 1.9 mg/dl (1.6-2.3) 02/13/25 04:13
Total Bilirubin 2.3 mg/dl (0.2-1.3) H 02/13/25 04:13
AST 1937 U/L (17-59) H* 02/13/25 04:13
ALT 436 U/L (0-50) H 02/13/25 04:13
Alkaline Phosphatase 53 U/L (38-126) 02/13/25 04:13
Vital Signs and I&O:
Vital Signs
Temp Pulse Resp BP Pulse Ox
98.2 F 131 20 138/104 95
02/13/25 11:00 02/13/25 10:30 02/13/25 10:30 02/13/25 10:30 02/13/25 10:00
I&O
02/12/25 02/13/25 02/14/25
06:59 06:59 06:59
Intake Total 1495 / 1524 236 / 236
Output Total 4005 / 4005 400 / 400
Balance -2510 / -2481 -164 / -164
Physical Exam
Physical Exam
HEENT: Anicteric
Cardiology: Irregular Rate/Rhythm (tachy 120)
Pulmonary: Clear
GI: Soft, Non Distended, Non Tender and Normal Bowel Sounds
Extremities: No Edema
Neuro: Non Focal
--- NOTE | 2025-02-13 11:21 | W.PN.INTV ---
Today's Communication / Plan
Recommendations
Cardizem drip
Heparin drip
Beta-blockers
IV diuretics
Await for echocardiogram
Nebulizers as needed
Alcohol withdrawal protocol-phenobarbital drip
Monitor for arrhythmias
Remains in critical care level for now.
Assessment
-
64-year-old man who denies any significant past medical history other than anxiety depression comes to the hospital with 4-day history of shortness of breath. Found to be significant hypoxemic with pulse ox in the 50s. Required oxygen plantation,
BiPAP for increased work of breathing. Chest x-ray consistent with heart failure, proBNP elevated, abnormal LFTs. He reports he stopped drinking alcohol about a month ago.
Transferred to the critical care unit for noninvasive mechanical ventilation and additional management.
Acute hypoxemic respiratory failure-requiringNoninvasive mechanical ventilation and supplemental oxygen.
AB.
Chest x-ray: Pulmonary vascular congestion
Acute heart failure unknown type-suspect
Elevated proBNP
Mildly increased troponin
Rapid atrial fibrillation-new onset
Abnormal LFTs: Significant transaminitis
AST 2400/ALT 517
Right upper quadrant ultrasound 01/28/2025: Fatty liver. No acute abnormalities.
Metabolic acidosis-elevated anion gap
History of alcohol abuse-reports last drink a ?month ago-cannot rule out alcohol withdrawal
Former smoker quit less than 20 years ago currently vaping
No PFT available
Chest x-ray without hyperinflation
Assessment and plan:
-
Initially transferred to the critical care unit 02/12/2025: Acute respiratory failure/rapid atrial fibrillation/acute heart failure unknown type requiring noninvasive mechanical ventilation.
Ischemic, alcoholic cardiomyopathy possibility.
-
Acute heart failure-unknown type: Rapid atrial fibrillation-new onset.
Cardiology following patient
Clinically improved
Less oxygen requirements
Less crackles
Remains tachycardic
On Cardizem drip
Metoprolol will be added
Echocardiogram pending
Diuresing well continue for now.
Heparin drip-follow PTT per
-
Continue oxygen supplementation maintain pulse ox above 90%. Requirements improved.
So far no evidence for pulmonary infection
Lung exam improved
Not bronchospastic on exam
Will add nebulizers as needed-no diagnosis of COPD but is a former smoker and he also does vaping.
Discontinue BiPAP not required any longer.
-
Transaminitis: Unclear etiology-likely alcohol and likely hypoperfusion from heart failure.
Recent ultrasound of the right upper quadrant: Fatty liver
Normal CPK
Trend LFTs
Ongoing alcohol abuse.
Patient never hypotensive.
Denies taking Tylenol or NSAIDs.
Benign abdominal exam
Wait for echocardiogram result
GI following.
-
Anion gap metabolic acidosis: Resolved
Lactate level cleared
-
Former smoker quit 20 years ago. Vaping.
Not hyperinflated
No indication for systemic corticosteroids at this point
-
Alcohol withdrawal: Continue MSAS
Phenobarbital taper
UDS negative only positive for benzos.
-
Advance diet
DVT prophylaxis on heparin drip
-
Critical care statement: A total of 36minutes of critical care time was provided for this patient today. This includes management of unstable vital signs, evaluation of the patient at bedside, reviewing the patient's pertinent medical records
including ventilator settings, arterial blood gases, radiographs, microbiology, laboratory evaluations and discussion with primary team, critical care nursing, and respiratory therapy.
Subjective Dataa
Subjective Data
Date of Service:
Date of Service: February 13, 2025
Chief Complaint: Maintenance Data Analyst Follow Up (Hypoxemic respiratory failure-acute heart failure/toxic metabolic encephalopathy)
Subjective:
Patient overall feels better compared to yesterday
Still short of breath and slight still having some coughing with mild phlegm production
Denies wheezing
Denies chest pain
Less anxious today.
Review of Systems
General: Fever (n)
Cardiopulmonary: Dyspnea and Cough
GI: Abdominal Pain (n) and Nausea (n)
Neuro: Headache (n)
Objective Data
Data Reviewed
Vital Signs / I&O / Oxygen:
Vital Signs
Temp Pulse Resp BP Pulse Ox
98.2 F 131 20 138/104 95
02/13/25 11:00 02/13/25 10:30 02/13/25 10:30 02/13/25 10:30 02/13/25 10:00
Intake and Output
02/12/25 02/13/25 02/14/25
06:59 06:59 06:59
Intake Total 1495 / 1524 236 / 236
Output Total 4005 / 4005 400 / 400
Balance -2510 / -2481 -164 / -164
SaO2 95
Nasal Cannula flow liters per 4
minute
Physical Exam
General: Comfortable
HEENT: Normocephalic
Cardiovascular: Irregular Rhythm
Respiratory: Crackles
GI: Soft and Non Distended
Neurology: Awake, Alert, Oriented, AO x 3 and Tremors (mild)
Skin: Warm
Labs/Micro/Reports
Lab Data
02/13/25 04:13
02/13/25 04:13
Laboratory Results
02/12/25 02/12/25 02/12/25
11:38 15:20 16:22
PT 16.0 H Cancelled
INR 1.25 Cancelled
APTT 27.4 Cancelled
pH 7.34 L
pCO2 26 L
pO2 69 L
HCO3 14.0 L*
O2 Delivery Level %oxygen/room air 76
02/12/25 02/13/25
22:06 04:13
PT 15.8 H 15.6 H
INR 1.23 1.21
APTT 32.0 34.7
pH
pCO2
pO2
HCO3
O2 Delivery Level
Microbiology
02/12/25 15:20 Nasal Swab Influenza Types A & B (MALLIKA) - Final
Negative for Influenza A & B, NAAT
Negative results must be combined with clinical observations
and patient history.
Nucleic Acid Amplification test (NAAT)performed on the
[employer] platform.
[2025-02-13] MEDS: TOPROL XL 50 MG PO ×2 (11:26→19:42)
[2025-02-13] MEDS: LOPRESSOR 5 MG IV (11:30)
[2025-02-13] MEDS: MAG-TAB SR 84 MG PO ×2 (11:31→19:42)
[2025-02-13] MEDS: HEPARIN 25000 UNITS/250 ML IV (11:33)
[2025-02-13] MEDS: KCL 40 MEQ PO (11:33)
[2025-02-13 11:45] LABS: APTT 33.2 Sec (23.4-35.0)
--- NOTE | 2025-02-13 11:55 | PTCARENOTE ---
HR improved after IVP Lopressor administered.
--- NOTE | 2025-02-13 12:18 | PTCARENOTE ---
HR 90's afib after IVP Lopressor administered. With activity of getting back to bed his HR maintained 90's-103. RA pulse ox while in bed 77%, Oxygen titrated up to 4 liters nasal cannula while in bed.
--- NOTE | 2025-02-13 13:30 | CARDSERVLU ---
Echocardiogram with Lumason completed after protocol screening completed. Allergies verified.
Patent IV site: __R FA___
IV site flushed with 0.9% NaCl pre and post administration.
Diluted bolus method utilized to enhance visualization of ventricular kowalski.
Total volume given: _3.5___ mL
Patient tolerated all procedures well without complications.
--- NOTE | 2025-02-13 15:15 | PTCARENOTE ---
OOB to the chair. 96% on 4 liters nasal cannula when sitting up n the chair. He is currently using the IS to 2000ml's, double from this morning. Reports he is feeling much better. Safe environment maintained.
--- NOTE | 2025-02-13 16:30 | PTCARENOTE ---
Odd behavior. He is restless, water spilled all over his table & folder in the room. More restless. His visitor/neighbor is laying barefoot in his bed. He stood up to get into bed with her and was not aware of his cords and oxygen tubing etc. I
stated it was not appropriate they be in bed together. He was unsteady on his feet and tangled. MSAS 5. Medicated per protocol.
--- NOTE | 2025-02-13 16:45 | CM ---
Chart reviewed and patient is agreeable to a referral to [facility], it security manager reached out to [facility] at [phone].
Plan; Home when stable. Referral sent to [facility].
--- NOTE | 2025-02-13 18:30 | PTCARENOTE ---
Moris from [facility] is at the bedside. Pt was provided privacy throughout their conversation.
[2025-02-13 19:12] LABS: APTT 48.9 Sec (23.4-35.0)
[2025-02-13] MEDS: ATIVAN 2 MG IV (19:43)
--- NOTE | 2025-02-13 20:00 | PTCARENOTE ---
Received pt. at 1900. Pt. currently in bed. Awake, alert, and oriented. Noted to be restless/fidgety. Denies pain/discomfort. Afebrile. Heart rhythm afib. Heparin gtt and Cardizem gtt infusing. Blood pressure normotensive. Currently on midflow nasal
cannula. Lungs sound diminished. PO diet, good appetite. Voiding without issue. Skin as documented. Discussed plan of care with patient. Vital signs stable at this time.
[2025-02-14] VITALS (21 sets, daily range): BP systolic 92–148; BP diastolic 60–132; BMI 24.1
--- NOTE | 2025-02-14 00:30 | PTCARENOTE ---
Pt. assessment unchanged. Remains restless/fidgety. Pulled out an IV, keeps talking about going home 'today'. Pt. verbally redirected. Vital signs stable at this time.
[2025-02-14] MEDS: ATIVAN 1 MG PO ×3 (01:29→19:27)
[2025-02-14] MEDS: HEPARIN 25000 UNITS/250 ML IV ×2 (01:44→15:59)
[2025-02-14 01:59] LABS: INR 1.16; PT 15.2 Sec (11.4-14.6)
[2025-02-14 02:00] LABS: APTT 54.5 Sec (23.4-35.0)
[2025-02-14 03:47] LABS: Hematocrit 32.9 % (39.0-52.0); Hemoglobin 11.6 g/dL (13.0-18.0); Mean Corp Hgb Conc. 35.3 g/dL (33.0-37.0); Mean Corpuscular Hgb 34.9 pg (27.0-31.0); Mean Corpuscular Volume 99.1 fL (80.0-94.0); Mean Platelet Volume 10.1 fL (7.4-10.4); Platelet Count 217 10^3/uL (130-400); Red Blood Cell Count 3.32 10^6/uL (4.70-6.10); Red Cell Dist. Width 13.1 % (11.5-14.5); White Blood Cell Count 6.9 10^3/uL (4.8-10.8)
--- NOTE | 2025-02-14 03:54 | PTCARENOTE ---
Pt. less restless now. Appears to be sleeping comfortably. AM labs drawn. Heparin gtt adjusted per order. Vital signs stable at this time.
[2025-02-14 04:09] LABS: ALT (SGPT) 269 U/L (0-50); AST (SGOT) 441 U/L (17-59); Albumin 3.4 g/dl (3.5-5.0); Alkaline Phosphatase 50 U/L (38-126); Blood Urea Nitrogen 22 mg/dl (9-20); Calcium 8.1 mg/dl (8.4-10.2); Carbon Dioxide 25 mmol/L (22-30); Chloride 104 mmol/L (98-107); Estimated Creatinine Clearance 105 ml/min; Glucose 97 mg/dl (70-99); Magnesium 1.8 mg/dl (1.6-2.3); Potassium 3.5 mmol/L (3.5-5.1); Sodium 134 mmol/L (135-145); Total Protein 5.9 g/dl (6.3-8.2); eGFR > 60.00
[2025-02-14] MEDS: KCL 40 MEQ PO (06:11)
[2025-02-14] MEDS: LOPRESSOR 5 MG IV ×3 (06:19→17:47)
--- NOTE | 2025-02-14 08:01 | PTCARENOTE ---
07:00 assumed care . Patient in bed. Heparin at via left wrist
AAO x 3 MSAS monitored
Afib 124; pedal pulses + no edema denies chest pain; denies palpitation
abdomen soft non tender denies nausea ;
urinates in a urinal
Bed alarm activated for safety
[2025-02-14] MEDS: PHENOBARBITAL 97.5 MG IV ×2 (08:12→16:17)
[2025-02-14] MEDS: THIAMINE INJECTION 200 MG IV ×2 (08:14→19:28)
[2025-02-14] MEDS: LASIX 40 MG IV (08:15)
--- NOTE | 2025-02-14 08:15 | W.PN.CD ---
Today's Communication / Plan
-
Cont dilt gtt
Metop 75 mg
Likely YAMILKA DCCV Sunday
Impression / Plan
-
Acute, hypoxic respiratory failure:
-currently on bipap, IV nitro, IV lasix
-CHF management as below
-also with hx smoking, could have COPD component
Acute HFrEF ~20%
-IV diuresis
- GDMT when able will have CM benitez Entresto AC and SGLT2i --> should be affordable
- on Metop XL
AFIB with RVR:
- Rates are poorly controlled.
- Hemodynamically stable with dilt and metop
- metop increased to 75 mg
- [id number] score is 2 for CHF - we discussed stroke risk and AC and will start IV heparin, which also requires intensive monitoring
- possible YAMILKA DCCV Sunday
Elevated BP:
-denies hx HTN, become more controlled
-monitor on current IV medications
Abnormal liver function:
-GI consulted
-hx ETOH use disorder
Abnormal troponin:
-denies CP
-trend to peak
-suspect acute, non-ischemic myocardial injury in setting of hypoxia, CHF, tachycardia
Tobacco abuse:
-needs education on total cessation prior to d/c
ETOH use disorder:
-needs education on continued cessation prior to d/c
Subjective:
Feeling improved
Physical Exam
Vital Signs/Labs
Vital Signs
Temp Pulse Resp BP Pulse Ox
98.3 F 107 26 111/92 88
02/14/25 07:20 02/14/25 06:00 02/14/25 06:00 02/14/25 05:00 02/14/25 05:30
02/13/25 02/14/25 02/15/25
06:59 06:59 06:59
Actual Weight 178 lb 5.663 oz 177 lb 11.081 oz
02/14/25 03:33
02/14/25 03:33
PT Cancelled 02/14/25 06:00
INR Cancelled 02/14/25 06:00
APTT 54.5 Sec (23.4-35.0) H 02/14/25 01:40
Magnesium 1.8 mg/dl (1.6-2.3) 02/14/25 03:33
02/12/25
11:18
Cpf-F-Dyozhajjrho Pept 4510
LAB Results
02/12/25 02/12/25 02/13/25
11:18 18:00 00:09
Troponin I 0.074 H* 0.093 H* D 0.109 H*
02/13/25
04:13
Troponin I 0.088 H*
Physical Exam
Constitutional: No acute distress
EENT: Anicteric
Cardiovascular: Rhythm/rate is irregular
Respiratory: Respiratory effort normal and Crackles Present
GI: Soft
Neuro/Psych: Alert and Oriented
Data Reviewed
-
Date of Service: February 14, 2025
EKG: Tracing Personally Visualized and interpreted (af)
Echo: Tracing Personally Visualized and interpreted and Report Reviewed by me
Medical Tests (PFT, Pathology etc): Report Reviewed by me
Labs: Labs Reviewed by me
[2025-02-14] MEDS: FOLVITE 1 MG PO (08:16)
[2025-02-14] MEDS: TOPROL XL 50 MG PO (08:16)
[2025-02-14 09:53] LABS: APTT 79.1 Sec (23.4-35.0)
--- NOTE | 2025-02-14 10:03 | W.PN.HOSP.TC ---
Today's Communication/Plan
-
IV Lasix. Rate control and heparin drip.
Assessment / Plan
Assessment / Plan
Physical exam:
General: Acutely ill
HEENT: Normocephalic, Atraumatic and Moist Mucous Membranes
Respiratory: Bilateral coarse crackles in the bases; Negative Wheezes, Rales or Rhonchi
Cardiac: Irregular rate and rhythm, tachycardic and S1/S2
GI: Soft, Nontender and Nondistended
Musculoskeletal: No Clubbing, No Cyanosis and No Edema
Neuro: Awake, Alert and Oriented
Psych: Calm
A/P:
Acute hypoxic respiratory failure:
Multifactorial etiology heart failure, A-fib, etc.
Improving
Off BiPAP
Continue diuresis
Acute systolic CHF:
Reviewed echocardiogram with EF of 20% with global hypokinesis and LAD territory akinesis
Continue Lasix 40 mg IV daily
Started on metoprolol succinate 25 mg twice a day
Monitor ins and outs and daily weight
Atrial fibrillation with rapid ventricular response:
Titrate Cardizem drip and started on Toprol
Start IV heparin drip
Cardiology following
Plan for cardioversion if still in A-fib by Sunday
Elevated troponin:
Elevated troponin due to non-ischemic myocardial injury due to heart failure and tachycardia but cannot rule out ischemic heart disease will defer to cardiology if ischemic workup will be pursued.
Elevated LFTs:
Likely related to alcohol liver disease and fatty infiltration of the liver and low flow state
Monitor trend
Alcohol abuse/Alcohol withdrawal:
MSA protocol
Phenobarbital protocol
On thiamine and folic acid
Elevated blood pressure likely related to alcohol withdrawal-monitor
Hypomagnesemia:
Replete and trend
DVT prophylaxis:
On heparin drip
CODE STATUS:
Full code
Total time spent on today's encounter was 52 minutes which included time spent in counseling the patient/family regarding diagnosis and treatment plan as listed above, goals of care, and symptom management. Case was discussed with nursing staff,
specialists, and care coordinators/case management. All labs and imaging personally reviewed by me. Remainder the time spent in detailed review of previous records, lab data, imaging, and other medical provider documentation.
Anticipated Discharge: > 48 hours
Subjective/Interval History
-
Date of Service: February 14, 2025
Still in A-fib rapid rates. Still short of breath as well.
Objective Data
-
Labs:
Laboratory Results
02/14/25 02/14/25 02/14/25
01:40 03:33 06:00
WBC 6.9
Hgb 11.6 L
Hct 32.9 L
Plt Count 217
PT 15.2 H Cancelled
INR 1.16 Cancelled
APTT 54.5 H
Sodium 134 L
Potassium 3.5
Chloride 104
Carbon Dioxide 25
BUN 22 H
Creatinine 0.8
Glucose 97
Calcium 8.1 L
Total Bilirubin 2.0 H
AST 441 H
ALT 269 H
Alkaline Phosphatase 50
02/14/25
09:16
WBC
Hgb
Hct
Plt Count
PT
INR
APTT Pending
Sodium
Potassium
Chloride
Carbon Dioxide
BUN
Creatinine
Glucose
Calcium
Total Bilirubin
AST
ALT
Alkaline Phosphatase
Vital Signs:
Vital Signs
Temp Pulse Resp BP Pulse Ox
98.3 F 120 26 125/107 88
02/14/25 07:20 02/14/25 08:16 02/14/25 06:00 02/14/25 08:16 02/14/25 05:30
I&O
02/13/25 02/14/25 02/15/25
06:59 06:59 06:59
Intake Total 1495 / 1524 1569 / 1569
Output Total 4005 / 4005 1250 / 1250
Balance -2510 / -2481 319 / 319
--- NOTE | 2025-02-14 10:10 | CM ---
Addendum entered by Tena Hatfield 02/14/25 12:11:
Cost of medications for patient are as follows Eliquis $15, Pradaxa $15, Xarelto $15, and Entresto $15, Jardiance $15, Farxiga $15.
Original Note:
Chart reviewed and referral sent to [facility] and Moris from [facility] met with patient last night, and patient has agreed to outpatient program with [facility], per [facility] patient has already reached out to [facility].
Plan; To follow with patient progress and assist with discharge planning.
--- NOTE | 2025-02-14 10:41 | W.PN.GI.CBS2 ---
Today's Communication / Plan
-
Trend LFT
Assessment / Plan
-
64 y/o male with PMH panic attacks, depression, ETOH abuse (last use yesterday approx 10-12 oz vodka, previously was drinking 1-1.5 liters of wine daily and was trying to remain sober over the past 28 days), came to the ER for alcohol withdrawal sx
but said it was n/v at the time who currently presented to the ER with acute onset of SOB. The patient tells me that he has a hx of ETOH abuse and that he was drinking 1.5 liters of wine up to about 1 month ago. He quit 'cold turkey' and had
withdrawl sx. He came to ER at that time however did not divulge that information. He was sent home with antiemetics. He states that he went to 'AA' meeting and that he has been trying to stat sober, however he has been continuing to drink 'the
airplane bottles' of vodka during this time. His he did drink between 10-12 of these yesterday. He states that he became scared when he had acute onset of SOB. That is when he came to the ER. The patient was found to be in A fib with RVR. We are
asked to evaluate for elevated LFTs. Patient with elevated T Bili, significantly elevated AST> ALT elevation with normal Alk phos. No abd pain, continues to drink. Afib with RVR and pulmonary edema. Negative tylenol level.
Impression:
Elevated LFT-likely multifactorial. EtOH versus low flow state. Trending down now. Hepatitis panel negative. Fatty liver on ultrasound. Ultrasound abdomen with Doppler normal.
plan
DF less than 32. No indication for steroid
AM labs - Liver test continues to trend down
Continue trend LFT/ INR
If persistently elevated would recommend chronic liver disease workup
Alcohol withdrawal protocol as per medical team
Advised on alcohol abstinence in the future
Continue management per ICU team/cardiology
No Further recommendation at this point. Outpatient GI follow-up on discharge. Will sign off
Total Time Spent with Patient (in minutes): 35
Subjective
Subjective
Date of Service: February 14, 2025
No GI complaints
Objective
Data Reviewed
Laboratory Data:
Laboratory Results
02/14/25 03:33
02/14/25 03:33
Laboratory Results
PT Cancelled 02/14/25 06:00
INR Cancelled 02/14/25 06:00
APTT 79.1 Sec (23.4-35.0) H 02/14/25 09:16
Phosphorus 4.4 mg/dl (2.5-4.5) 02/12/25 11:18
Magnesium 1.8 mg/dl (1.6-2.3) 02/14/25 03:33
Total Bilirubin 2.0 mg/dl (0.2-1.3) H 02/14/25 03:33
AST 441 U/L (17-59) H 02/14/25 03:33
ALT 269 U/L (0-50) H 02/14/25 03:33
Alkaline Phosphatase 50 U/L (38-126) 02/14/25 03:33
Vital Signs and I&O:
Vital Signs
Temp Pulse Resp BP Pulse Ox
98.3 F 120 26 125/107 88
02/14/25 07:20 02/14/25 08:16 02/14/25 06:00 02/14/25 08:16 02/14/25 05:30
I&O
02/13/25 02/14/25 02/15/25
06:59 06:59 06:59
Intake Total 1495 / 1524 1569 / 1569
Output Total 4005 / 4005 1250 / 1250
Balance -2510 / -2481 319 / 319
Physical Exam
Physical Exam
GI: Soft, Non Distended and Non Tender
[2025-02-14] MEDS: NICODERM TRANSDERMAL 14 MG TRANSDERM (10:50)
--- NOTE | 2025-02-14 11:59 | PTCARENOTE ---
PTT 79.1 At goal Heparin will remain at Next ptt in 6 hours
--- NOTE | 2025-02-14 12:48 | PTCARENOTE ---
Afib 123
Afib 123 BP via Rt upper arm: 114/78 metoprolol 5 mg IV prn order for HR > 110
[2025-02-14 16:35] LABS: APTT 81.9 Sec (23.4-35.0)
--- NOTE | 2025-02-14 16:43 | PTCARENOTE ---
AAO x3. Afbi 123-132. Patient currently on Toprol 75 mg BID and Metoprolol 5 mg IV Q 4 PRN Last dose given at 12:30. DR. Mcclendon aware to elevated heart rate. No new orders received. OOB chair for about 6 hours . Transfer to bed supervision. Bed
alarm activated
Initialized on 02/14/25 15:43 - END OF NOTE
--- NOTE | 2025-02-14 17:32 | W.PN.INTV ---
Today's Communication / Plan
Recommendations
- Continue diuresis
- Chest x-ray in a.m.
Assessment
-
64-year-old man who denies any significant past medical history other than anxiety depression comes to the hospital with 4-day history of shortness of breath. Found to be significant hypoxemic with pulse ox in the 50s. Required oxygen plantation,
BiPAP for increased work of breathing. Chest x-ray consistent with heart failure, proBNP elevated, abnormal LFTs. He reports he stopped drinking alcohol about a month ago.
Transferred to the critical care unit for noninvasive mechanical ventilation and additional management.
Acute hypoxemic respiratory failure-requiring Noninvasive mechanical ventilation and supplemental oxygen.
Chest x-ray: Improving pulmonary edema
Acute heart failure, ejection fraction 20%
Elevated proBNP
Mildly increased troponin
Rapid atrial fibrillation-new onset, metoprolol dose increased to 75 twice a day, cardiology service on case
Abnormal LFTs: Significant transaminitis, improving
Metabolic acidosis-elevated anion gap, improved
History of alcohol abuse-reports last drink a ?month ago-cannot rule out alcohol withdrawal
Former smoker quit less than 20 years ago currently vaping
No PFT available
Chest x-ray without hyperinflation
Assessment and plan:
-
Initially transferred to the critical care unit 02/12/2025: Acute respiratory failure/rapid atrial fibrillation/acute heart failure unknown type requiring noninvasive mechanical ventilation.
Ischemic, alcoholic cardiomyopathy possibility.
-
Acute heart failure-EF 25%: Rapid atrial fibrillation-new onset.
Cardiology following patient
Clinically improved
L improving oxygen requirement, currently down to 10 L, saturating 96%. Patient had been on BiPAP before and then was transition to mid flow.
-
Continue oxygen supplementation maintain pulse ox above 90%. Requirements improved.
So far no evidence for pulmonary infection
Lung exam improved
Not bronchospastic on exam
Will add nebulizers as needed-no diagnosis of COPD but is a former smoker and he also does vaping.
-
Transaminitis: Suspect related to alcoholism, improving
Recent ultrasound of the right upper quadrant: Fatty liver
GI following.
-
Anion gap metabolic acidosis: Resolved
Lactate level cleared
-
Former smoker quit 20 years ago. Vaping.
Not hyperinflated
No indication for systemic corticosteroids at this point
-
Alcohol withdrawal: Continue MSAS
Phenobarbital taper
UDS negative only positive for benzos.
-
Advance diet
DVT prophylaxis on heparin drip
-
Critical care statement: A total of 48 minutes of critical care time was provided for this patient today. This includes management of unstable vital signs, evaluation of the patient at bedside, reviewing the patient's pertinent medical records
including ventilator settings, arterial blood gases, radiographs, microbiology, laboratory evaluations and discussion with primary team, critical care nursing, and respiratory therapy.
Subjective Dataa
Subjective Data
Date of Service:
Date of Service: February 14, 2025
Chief Complaint: Eeg Technician Follow Up (Hypoxemic respiratory failure-acute heart failure/toxic metabolic encephalopathy)
Subjective:
Patient reports feeling better, comfortable in bed.
Review of Systems
Genitourinary: Other (All 14 systems reviewed and negative except as stated above in the history of present illness.)
Objective Data
Data Reviewed
Vital Signs / I&O / Oxygen:
Vital Signs
Temp Pulse Resp BP Pulse Ox
98 F 131 32 119/80 94
02/14/25 15:00 02/14/25 14:05 02/14/25 13:30 02/14/25 14:05 02/14/25 14:00
Intake and Output
02/13/25 02/14/25 02/15/25
06:59 06:59 06:59
Intake Total 1495 / 1524 1569 / 1589 320 / 320
Output Total 4005 / 4005 1250 / 1250 1100 / 1100
Balance -2510 / -2481 319 / 339 -780 / -780
SaO2 94
Nasal Cannula flow liters per 3
minute
Physical Exam
General: Comfortable
HEENT: Normocephalic
Cardiovascular: Irregular Rhythm
Respiratory: Crackles (Few inspiratory crackles)
GI: Soft and Non Distended
Neurology: Awake, Alert and Oriented
Skin: Warm
Labs/Micro/Reports
Lab Data
02/14/25 03:33
02/14/25 03:33
Laboratory Results
02/13/25 02/14/25 02/14/25
18:53 01:40 06:00
PT 15.2 H Cancelled
INR 1.16 Cancelled
APTT 48.9 H 54.5 H
02/14/25 02/14/25
09:16 16:13
PT
INR
APTT 79.1 H 81.9 H
Microbiology
02/12/25 15:20 Nasal Swab Influenza Types A & B (MALLIKA) - Final
Negative for Influenza A & B, NAAT
Negative results must be combined with clinical observations
and patient history.
Nucleic Acid Amplification test (NAAT)performed on the
[employer] platform.
--- NOTE | 2025-02-14 17:53 | PTCARENOTE ---
Afib 130's SBP 120; MSAS 5; appears restless. Metoprolol 5 mg IV PRN and Ativan PRN per MSAS 5
[2025-02-14] MEDS: TOPROL XL 75 MG PO (19:26)
--- NOTE | 2025-02-14 20:00 | PTCARENOTE ---
Received pt. at 1900. Pt. currently awake, alert, and oriented. Pt. denies pain/discomfort. Afebrile. Heart rhythm Afib. Heparin gtt currently infusing. Currently on 4L nasal cannula. Lungs sound diminished. PO diet, good appetite. Voiding in urinal
without issue. Skin as documented. Discussed plan of care with patient. Vital signs stable at this time.
[2025-02-14] MEDS: LUMINAL 64.8 MG PO (22:06)
[2025-02-15] VITALS (12 sets, daily range): BP systolic 110–155; BP diastolic 81–114; BMI 23.9
--- NOTE | 2025-02-15 00:15 | PTCARENOTE ---
Pt. assessment unchanged. Currently appears to be sleeping comfortably. Heparin gtt infusing. Vital signs stable at this time.
[2025-02-15 03:31] LABS: % Basophils 1.2 % (0-2); % Eosinophils 3.6 % (0-6); % Immature Granulocytes 0.5 % (0-0.5); % Lymphocytes 23.8 % (20.5-51.1); % Monocytes 8.4 % (1.7-9.3); % Neutrophils 62.5 % (42.2-75.2); Absolute Basophils 0.1 10^3/uL (0-0.2); Absolute Eosinophils 0.2 10^3/uL (0-0.7); Absolute Lymphocytes 1.4 10^3/uL (1.2-3.4); Absolute Monocytes 0.5 10^3/uL (0.1-0.6); Absolute Neutrophils 3.7 10^3/uL (1.4-6.5); Hematocrit 36.6 % (39.0-52.0); Mean Corp Hgb Conc. 35.5 g/dL (33.0-37.0); Mean Corpuscular Hgb 35.1 pg (27.0-31.0); Mean Corpuscular Volume 98.9 fL (80.0-94.0); Nucleated Red Blood Cells % 0.7 % (-); Platelet Count 199 10^3/uL (130-400); Red Cell Dist. Width 13.3 % (11.5-14.5); White Blood Cell Count 5.8 10^3/uL (4.8-10.8)
[2025-02-15 03:47] LABS: APTT 90.2 Sec (23.4-35.0)
[2025-02-15 03:54] LABS: B.E. 0.9 mmol/L; O2 Saturation % 94.5 % (94-98); PCO2 33 mmHg (35-48); PO2 63 mmHg (83-108); pH 7.47 (7.35-7.45)
[2025-02-15 03:55] LABS: ALT (SGPT) 170 U/L (0-50); AST (SGOT) 146 U/L (17-59); Albumin 3.3 g/dl (3.5-5.0); Alkaline Phosphatase 38 U/L (38-126); Blood Urea Nitrogen 20 mg/dl (9-20); Calcium 8.4 mg/dl (8.4-10.2); Carbon Dioxide 22 mmol/L (22-30); Chloride 106 mmol/L (98-107); Direct Bilirubin 0.7 mg/dl (0.0-0.4); Estimated Creatinine Clearance 120 ml/min; Glucose 85 mg/dl (70-99); Magnesium 1.8 mg/dl (1.6-2.3); Potassium 4.3 mmol/L (3.5-5.1); Sodium 133 mmol/L (135-145); Total Bilirubin 1.8 mg/dl (0.2-1.3); Total Protein 5.9 g/dl (6.3-8.2); eGFR > 60.00
--- NOTE | 2025-02-15 04:00 | PTCARENOTE ---
Pt. assessment unchanged. AM labs drawn. Vital signs stable at this time.
[2025-02-15] MEDS: MAGNESIUM OXIDE 500 MG PO (04:12)
[2025-02-15] MEDS: HEPARIN 25000 UNITS/250 ML IV ×2 (04:12→23:20)
--- NOTE | 2025-02-15 07:32 | W.PN.INTV ---
Today's Communication / Plan
Recommendations
- Patient stable for transfer to IVU
- Er Registrar service will sign off, please call as needed
Assessment
-
64-year-old man who denies any significant past medical history other than anxiety depression comes to the hospital with 4-day history of shortness of breath. Found to be significant hypoxemic with pulse ox in the 50s. Required oxygen plantation,
BiPAP for increased work of breathing. Chest x-ray consistent with heart failure, proBNP elevated, abnormal LFTs. He reports he stopped drinking alcohol about a month ago.
Transferred to the critical care unit for noninvasive mechanical ventilation and additional management.
Assessment and plan
#1. Acute hypoxemic respiratory failure, due to Pulmonary edema
- Patient initially required BiPAP, subsequently transition to high flow nasal cannula
- Currently on room air, saturating 91%
#2. Pulmonary edema with suspected acute heart failure with reduced ejection fraction, EF 25%
- Concern for alcohol-related cardiomyopathy versus ischemic heart disease versus both
- Minimally elevated troponin noted, cardiology service on case
- On heparin infusion, metoprolol and IV Lasix
- Saturating 91% on room air, not requiring any pressors, fluid balance, -900 mL
#3. Atrial fibrillation with rapid ventricular rate, newly diagnosed.
- Continue metoprolol, dose uptitrated
- On heparin infusion
- Discussed with cardiology service, anticipate digoxin addition, might need cardioversion
#4. Transaminitis, suspect related to alcohol and likely passive hepatic congestion
- Fatty liver noted on imaging, unremarkable Doppler imaging
#5. History of alcohol abuse
- Reported last drink was about a month ago, doubted considering patient did experience signs symptoms of alcohol withdrawal
- Continue MSAS, on phenobarbital taper
- Continue thiamine and nicotine replacement
#6. Anion gap metabolic acidosis on admission
- Improved
#7. History of smoking, longstanding
- Currently vaping
- Nicotine replacement
- No known history of COPD or emphysema, will need additional workup as outpatient
Advance diet
DVT prophylaxis on heparin drip
-
Critical care statement: A total of 48 minutes of critical care time was provided for this patient today. This includes management of unstable vital signs, evaluation of the patient at bedside, reviewing the patient's pertinent medical records
including ventilator settings, arterial blood gases, radiographs, microbiology, laboratory evaluations and discussion with primary team, critical care nursing, and respiratory therapy.
Data:
ECHO 01/2025: Mildly dilated LV with severely reduced systolic function.
LVEF is approximately 20% by visual estimation. Global hypokinesis, LAD
territory akinesis.
Normal right ventricular size and function.
Mild aortic regurgitation.
Estimated pulmonary artery pressure of 30 mmHg assuming a right atrial pressure
of 8 mmHg.
No prior study available for comparison.
Subjective Dataa
Subjective Data
Date of Service:
Date of Service: February 15, 2025
Chief Complaint: Er Registrar Follow Up (Hypoxemic respiratory failure-acute heart failure/toxic metabolic encephalopathy)
Subjective:
Patient comfortably sitting in chair in no acute distress.
Review of Systems
Genitourinary: Other (All 14 systems reviewed and negative except as stated above in the history of present illness.)
Objective Data
Data Reviewed
Vital Signs / I&O / Oxygen:
Vital Signs
Temp Pulse Resp BP Pulse Ox
98.2 F 118 14 135/105 96
02/14/25 20:00 02/15/25 06:00 02/15/25 06:00 02/15/25 06:00 02/15/25 06:00
Intake and Output
02/14/25 02/15/25 02/16/25
06:59 06:59 06:59
Intake Total 1569 / 1589 800 / 800
Output Total 1250 / 1250 1700 / 1700
Balance 319 / 339 -900 / -900
SaO2 96
Nasal Cannula flow liters per 4
minute
Physical Exam
General: Comfortable
HEENT: Normocephalic
Cardiovascular: Irregular Rhythm (Continues to be somewhat tachycardic in 120s)
Respiratory: Crackles (Few inspiratory crackles)
GI: Soft and Non Distended
Neurology: Awake, Alert and Oriented
Skin: Warm
Labs/Micro/Reports
Lab Data
02/15/25 03:21
02/15/25 03:21
Laboratory Results
02/14/25 02/14/25 02/15/25
09:16 16:13 03:21
APTT 79.1 H 81.9 H 90.2 H
pH
pCO2
pO2
HCO3
O2 Delivery Level
02/15/25
03:44
APTT
pH 7.47 H
pCO2 33 L
pO2 63 L
HCO3 24.0
O2 Delivery Level
Microbiology
02/12/25 15:20 Nasal Swab Influenza Types A & B (MALLIKA) - Final
Negative for Influenza A & B, NAAT
Negative results must be combined with clinical observations
and patient history.
Nucleic Acid Amplification test (NAAT)performed on the
[employer] platform.
[2025-02-15] MEDS: NICODERM TRANSDERMAL 14 MG TRANSDERM (08:02)
[2025-02-15] MEDS: LASIX 40 MG IV (08:03)
[2025-02-15] MEDS: THIAMINE INJECTION 200 MG IV (08:04)
[2025-02-15] MEDS: TOPROL XL 75 MG PO (08:05)
[2025-02-15] MEDS: FOLVITE 1 MG PO (08:06)
[2025-02-15] MEDS: LUMINAL 64.8 MG PO ×3 (08:06→21:49)
--- NOTE | 2025-02-15 08:44 | PTCARENOTE ---
0700: Assumed care; patient in bed. On 4 L of oxygen via nasal canula. Heprin at via left wrist.
AAO x3 c/o of been anxious. forgetful. MSAS 3, secondary to Afib with HR 130's to 140's
Afib 130-140's on telemetry No edema pedal pulses palatable. Toprol XL 75 mg PO administered ; Heparin drip at
Abdomen soft non-tender.
Voiding in a urinal
Transfer supervision OOB chair call yu within reach
[2025-02-15] MEDS: ATIVAN 1 MG PO (09:35)
--- NOTE | 2025-02-15 09:55 | W.PN.HOSP.TC ---
Today's Communication/Plan
-
Plan for cardioversion tomorrow
Assessment / Plan
Assessment / Plan
Physical exam:
General: Acutely ill
HEENT: Normocephalic, Atraumatic and Moist Mucous Membranes
Respiratory: Bilateral coarse crackles in the bases; Negative Wheezes, Rales or Rhonchi
Cardiac: Irregular rate and rhythm, tachycardic and S1/S2
GI: Soft, Nontender and Nondistended
Musculoskeletal: No Clubbing, No Cyanosis and No Edema
Neuro: Awake, Alert and Oriented
Psych: Calm
A/P:
Acute hypoxic respiratory failure:
Multifactorial etiology heart failure, A-fib, etc.
Improving
Off BiPAP
Continue diuresis
Acute systolic CHF:
Reviewed echocardiogram with EF of 20% with global hypokinesis and LAD territory akinesis
Continue Lasix 40 mg IV daily
Continue on metoprolol succinate 100 mg twice a day
Monitor ins and outs and daily weight
Will defer to cardiology if ischemic workup will be pursued
Atrial fibrillation with rapid ventricular response:
Cont on Toprol xl
Cont IV heparin drip
Cardiology following
Plan for cardioversion tomorrow Sunday
Elevated troponin:
Elevated troponin due to non-ischemic myocardial injury due to heart failure and tachycardia but cannot rule out ischemic heart disease will defer to cardiology if ischemic workup will be pursued.
Elevated LFTs:
Likely related to alcohol liver disease and fatty infiltration of the liver and low flow state
Monitor trend
Alcohol abuse/Alcohol withdrawal:
MSA protocol
Phenobarbital protocol
On thiamine and folic acid
Elevated blood pressure likely related to alcohol withdrawal but might have HTN-monitor on b-jaren
Hypomagnesemia:
Replete and trend
DVT prophylaxis:
On heparin drip
CODE STATUS:
Full code
Total time spent on today's encounter was 52 minutes which included time spent in counseling the patient/family regarding diagnosis and treatment plan as listed above, goals of care, and symptom management. Case was discussed with nursing staff,
specialists, and care coordinators/case management. All labs and imaging personally reviewed by me. Remainder the time spent in detailed review of previous records, lab data, imaging, and other medical provider documentation.
Anticipated Discharge: 24 - 48 hours
Subjective/Interval History
-
Date of Service: February 15, 2025
Patient feels better overall. Remains tachycardic. Afebrile
Objective Data
-
Labs:
Laboratory Results
02/15/25 02/15/25
03:21 03:44
WBC 5.8
Hgb 13.0
Hct 36.6 L
Plt Count 199
APTT 90.2 H
HCO3 24.0
Sodium 133 L
Potassium 4.3
Chloride 106
Carbon Dioxide 22
BUN 20
Creatinine 0.7
Glucose 85
Calcium 8.4
Total Bilirubin 1.8 H
AST 146 H
ALT 170 H
Alkaline Phosphatase 38
Vital Signs:
Vital Signs
Temp Pulse Resp BP Pulse Ox
97.6 F 123 21 128/114 96
02/15/25 08:01 02/15/25 09:30 02/15/25 08:00 02/15/25 08:05 02/15/25 08:00
I&O
02/14/25 02/15/25 02/16/25
06:59 06:59 06:59
Intake Total 1569 / 1589 800 / 820 160 / 160
Output Total 1250 / 1250 1700 / 1700 900 / 900
Balance 319 / 339 -900 / -880 -740 / -740
--- NOTE | 2025-02-15 12:29 | PTCARENOTE ---
Patient will be transfer to IVU via w/c. Report Given to Vanessa. Patient the main utility person: Barak Palomino notified via phone regarding patient transfer. Updated on plan of care: Cardioversion and YAMILKA on Sunday (tomorrow )
At time of transfer: pt AAO x3
Afib 133; no edema
Lungs clear diminished on RA
Abdomen soft non-tender reports last BM 02/14; 'Diet: low cholesterol with 2 G NA + Fluid Restriction 1919/
Voiding in a urinal
Heparin infusing at next PTT in am
Lines: peripheral lines x 2
--- NOTE | 2025-02-15 13:19 | W.PN.CD ---
Today's Communication / Plan
-
IV diuresis
YAMILKA DCCV tomorrow
Hold AM dose of metop in anticipation of DCCV
Impression / Plan
-
Acute, hypoxic respiratory failure:
-resolved
-also with hx smoking, could have COPD component
Acute HFrEF ~20%
-IV diuresis
- GDMT when able will have CM benitez Entresto AC and SGLT2i --> $15 apiece
- on Metop XL
AFIB with RVR:
- Rates are poorly controlled.
- Hemodynamically stable with dilt and metop
- metop increased to 75 mg
- [id number] score is 2 for CHF - we discussed stroke risk and AC and will start IV heparin, which also requires intensive monitoring
- YAMILKA DCCV Sunday
Elevated BP:
-denies hx HTN, become more controlled
-monitor on current IV medications
Abnormal liver function:
-GI consulted
-hx ETOH use disorder
Abnormal troponin:
-denies CP
-trend to peak
-suspect acute, non-ischemic myocardial injury in setting of hypoxia, CHF, tachycardia
Tobacco abuse:
-needs education on total cessation prior to d/c
ETOH use disorder:
-needs education on continued cessation prior to d/c
Subjective:
Feeling improved
Physical Exam
Vital Signs/Labs
Vital Signs
Temp Pulse Resp BP Pulse Ox
97.6 F 123 21 128/114 96
02/15/25 11:33 02/15/25 09:30 02/15/25 08:00 02/15/25 08:05 02/15/25 08:00
02/14/25 02/15/25 02/16/25
06:59 06:59 06:59
Actual Weight 177 lb 11.081 oz 175 lb 14.862 oz
02/15/25 03:21
02/15/25 03:21
PT Cancelled 02/14/25 06:00
INR Cancelled 02/14/25 06:00
APTT 90.2 Sec (23.4-35.0) H 02/15/25 03:21
Magnesium 1.8 mg/dl (1.6-2.3) 02/15/25 03:21
02/12/25
11:18
Puy-P-Afkqcnreqpr Pept 4510
LAB Results
02/12/25 02/13/25 02/13/25
18:00 00:09 04:13
Troponin I 0.093 H* D 0.109 H* 0.088 H*
Physical Exam
Constitutional: No acute distress and Comfortable
EENT: Anicteric
Cardiovascular: Rhythm/rate is irregular
Respiratory: Respiratory effort normal and Crackles Present
GI: Soft
Neuro/Psych: AO x 3
Data Reviewed
-
Date of Service: February 15, 2025
EKG: Tracing Personally Visualized and interpreted (afa)
Echo: Tracing Personally Visualized and interpreted
Labs: Labs Reviewed by me
[2025-02-15] MEDS: LANOXIN 250 MCG IV (14:13)
--- NOTE | 2025-02-15 15:12 | PTCARENOTE ---
Pt received from ICU at 1345. Pt alert and oriented. Room air sat 98%. Denies any pain or discomfort. IV Heparin infusing as ordered. Afib, rate in the 130's to 140's.
[2025-02-15] MEDS: TOPROL XL 100 MG PO (18:32)
[2025-02-15] MEDS: VITAMIN B1 100 MG PO (19:56)
[2025-02-16] VITALS (7 sets, daily range): BP systolic 122–146; BP diastolic 87–126; BMI 23.8
--- NOTE | 2025-02-16 00:59 | PTCARENOTE ---
Received pt @ change of shift. AAOx3, drowsy. HR 120s-130s, A-Fib on monitor, other VSS. Heparin gtt running @ 2000 units/hr through left forearm. MSAS Q4H. Discussed being NPO @ midnight for YAMILKA/CV in AM. Pt verbalizes understanding. Call yu
within reach.
[2025-02-16] MEDS: LOPRESSOR 5 MG IV (05:40)
[2025-02-16 05:42] LABS: APTT 50.3 Sec (23.4-35.0)
[2025-02-16 05:43] LABS: Hematocrit 38.5 % (39.0-52.0); Hemoglobin 13.9 g/dL (13.0-18.0); Mean Corp Hgb Conc. 36.1 g/dL (33.0-37.0); Mean Corpuscular Hgb 35.5 pg (27.0-31.0); Mean Corpuscular Volume 98.2 fL (80.0-94.0); Mean Platelet Volume 10.1 fL (7.4-10.4); Platelet Count 190 10^3/uL (130-400); Red Blood Cell Count 3.92 10^6/uL (4.70-6.10); Red Cell Dist. Width 13.4 % (11.5-14.5); White Blood Cell Count 6.2 10^3/uL (4.8-10.8)
[2025-02-16 05:59] LABS: ALT (SGPT) 116 U/L (0-50); AST (SGOT) 58 U/L (17-59); Albumin 3.5 g/dl (3.5-5.0); Alkaline Phosphatase 52 U/L (38-126); Blood Urea Nitrogen 18 mg/dl (9-20); Calcium 8.7 mg/dl (8.4-10.2); Carbon Dioxide 24 mmol/L (22-30); Chloride 104 mmol/L (98-107); Estimated Creatinine Clearance 105 ml/min; Glucose 82 mg/dl (70-99); Magnesium 1.8 mg/dl (1.6-2.3); Potassium 3.9 mmol/L (3.5-5.1); Sodium 136 mmol/L (135-145); Total Bilirubin 1.3 mg/dl (0.2-1.3); eGFR > 60.00
--- NOTE | 2025-02-16 08:17 | W.PN.CD ---
Today's Communication / Plan
-
YAMILKA DCCV
Cath today
Eliquis tonight/later today
Start Farxiga
Impression / Plan
-
Acute, hypoxic respiratory failure:
-resolved
-also with hx smoking, could have COPD component
Acute HFrEF ~20%
- IV diuresis
- GDMT when able will have CM benitez Entresto AC and SGLT2i --> $15 apiece
- on Metop XL holding for DCCV
- GDMT after cath: Start Farxiga, Entresto low dose tomorrow, cont metop
AFIB with RVR:
- YAMILKA DCCV Sunday
- [id number] score is 2 for CHF - we discussed stroke risk and AC and will start IV heparin, which also requires intensive monitoring
- Start Eliquis tonight
HTN
- start GDMT
Abnormal liver function:
-GI consulted
-hx ETOH use disorder
Abnormal troponin:
-denies CP
-trend to peak
-suspect acute, non-ischemic myocardial injury in setting of hypoxia, CHF, tachycardia
Tobacco abuse:
-needs education on total cessation prior to d/c
ETOH use disorder:
-needs education on continued cessation prior to d/c
Subjective:
Anxious about procedures
Physical Exam
Vital Signs/Labs
Vital Signs
Temp Pulse Resp BP Pulse Ox
97.3 F 117 18 133/114 99
02/16/25 07:39 02/16/25 07:39 02/16/25 07:39 02/16/25 05:40 02/16/25 07:39
02/15/25 02/16/25 02/17/25
06:59 06:59 06:59
Actual Weight 175 lb 14.862 oz 175 lb 4.28 oz
02/16/25 05:18
02/16/25 05:18
PT Cancelled 02/14/25 06:00
INR Cancelled 02/14/25 06:00
APTT 50.3 Sec (23.4-35.0) H 02/16/25 05:18
Magnesium 1.8 mg/dl (1.6-2.3) 02/16/25 05:18
02/12/25
11:18
Zyi-N-Cftmeadggkb Pept 4510
Physical Exam
Constitutional: No acute distress and Comfortable
EENT: Anicteric
Cardiovascular: Rhythm/rate is irregular
Respiratory: Respiratory effort normal
GI: Soft
Neuro/Psych: AO x 3
Data Reviewed
-
Date of Service: February 16, 2025
EKG: Tracing Personally Visualized and interpreted (af)
Echo: Tracing Personally Visualized and interpreted
Labs: Labs Reviewed by me
[2025-02-16] MEDS: FOLVITE 1 MG PO (09:07)
[2025-02-16] MEDS: VITAMIN B1 100 MG PO (09:07)
[2025-02-16] MEDS: FARXIGA 10 MG PO (09:08)
[2025-02-16] MEDS: NICODERM TRANSDERMAL TRANSDERM (09:08)
[2025-02-16] MEDS: LASIX 40 MG IV (09:08)
[2025-02-16] MEDS: LUMINAL 64.8 MG PO ×2 (09:09→16:41)
--- NOTE | 2025-02-16 10:08 | W.PN.HOSP.TC ---
Today's Communication/Plan
-
Continue the heparin drip
For electrical cardioversion and left heart cath today
Assessment / Plan
Assessment / Plan
A/P:
Acute hypoxic respiratory failure:
Multifactorial etiology heart failure, A-fib, etc.
Proved and denies any shortness of breath. Not on oxygen.
Off BiPAP
Continue diuresis. Improved weight of 5 pounds since admission.
Acute failure with reduced EF
Reviewed echocardiogram with EF of 20% with global hypokinesis and LAD territory akinesis
Continue Lasix 40 mg IV daily
Continue on metoprolol succinate 100 mg twice a day
Monitor ins and outs and daily weight
Will defer to cardiology if ischemic workup will be pursued-left heart cath planned for today
Atrial fibrillation with rapid ventricular response: Send remains with elevated heart rate
Cont on Toprol xl
Cont IV heparin drip
Cardiology following
Plan for cardioversion today
Elevated troponin:
Elevated troponin due to non-ischemic myocardial injury due to heart failure and tachycardia but cannot rule out ischemic heart disease will defer to cardiology if ischemic workup will be pursued.
Elevated LFTs:
Probably multifactorial including alcohol use, fatty liver, and hepatic congestion
The rapidity of improvement with diuresis and heart failure improvement suggests hepatic congestion might be playing a major role.
Alcohol use disorder
Currently no signs of withdrawal
MSA protocol
Phenobarbital protocol
On thiamine and folic acid
DVT prophylaxis:
On heparin drip
CODE STATUS:
Full code
Patient wishes to go see his dying father today if possible. He says it is imperative. Explained to him that would wait for the data from left heart cath and his response to electrical cardioversion and will have a plan.
Total time spent on today's encounter was 52 minutes which included time spent in counseling the patient/family regarding diagnosis and treatment plan as listed above, goals of care, and symptom management. Case was discussed with nursing staff,
specialists, and care coordinators/case management. All labs and imaging personally reviewed by me. Remainder the time spent in detailed review of previous records, lab data, imaging, and other medical provider documentation.
Anticipated Discharge: 24 - 48 hours
Subjective/Interval History
-
Date of Service: February 16, 2025
Patient without shortness of breath at rest. Denies any chest pain. No palpitation.
No nausea vomiting. Denies any lightheadedness.
Patient states that her father is in the hospital at [facility] and dying and he became emotional. He would like to get discharged so he can see his father who is currently seems to be on morphine drip.
Objective Data
-
Labs:
Laboratory Results
02/16/25 02/16/25
05:18 12:00
WBC 6.2
Hgb 13.9
Hct 38.5 L
Plt Count 190
APTT 50.3 H Pending
Sodium 136
Potassium 3.9
Chloride 104
Carbon Dioxide 24
BUN 18
Creatinine 0.8
Glucose 82
Calcium 8.7
Total Bilirubin 1.3
AST 58
ALT 116 H
Alkaline Phosphatase 52
Vital Signs:
Vital Signs
Temp Pulse Resp BP Pulse Ox
97.3 F 125 18 146/118 99
02/16/25 07:39 02/16/25 09:08 02/16/25 07:39 02/16/25 09:08 02/16/25 07:39
I&O
02/15/25 02/16/25 02/17/25
06:59 06:59 06:59
Intake Total 800 / 820 160 / 160
Output Total 1700 / 1700 900 / 900
Balance -900 / -880 -740 / -740
Physical Exam
-
General: Negative Respiratory Distress
Respiratory: Non Labored Respirations; Negative Wheezes, Rales or Accessory Resp Muscle Use
Cardiac: S1/S2, Irregular Rhythm and Tachycardic
GI: Soft and Nontender
Neuro: AO x 3
Data Reviewed
-
Labs: Labs Reviewed by me
[2025-02-16] MEDS: HEPARIN 25000 UNITS/250 ML IV (12:24)
[2025-02-16 13:03] LABS: APTT 70.3 Sec (23.4-35.0)
[2025-02-16] MEDS: LANOXIN IV (13:09)
--- NOTE | 2025-02-16 13:11 | PTCARENOTE ---
pt afib throughout the morning, pt vss. pt offers no complaints at this time. pt educated on plan of care for the day and verbalized understanding.
pt off unit for harrison/cv.
--- NOTE | 2025-02-16 15:44 | W.DCSUMMARY ---
Discharge Summary
Discharge Data
Date of Admission: 02/12/25
Date of Discharge: 02/16/25
-
Pending Results: No
Hospital Course
Primary diagnosis:
New onset of atrial fibrillation with rapid ventricular rate
New onset of heart failure with reduced EF to 20%
Left atrial appendage thrombus on YAMILKA
Abnormal LFTs suspected secondary to hepatic congestion, fatty liver
Alcohol use disorder
Hospital course:
64-year-old gentleman with a prior history of depression anxiety was having shortness of breath for 4 days. He was found in to be in new A-fib with RVR and heart rates up to 200s. Then clinically was also into acute heart failure causing acute
hypoxic respiratory failure. His transthoracic echo showed EF of 20% with global hypokinesis and LAD territory akinesis. Estimated pulmonary systolic pressure was 30 mmHg. He was put on beta-blockers and digoxin. Heart rate was still elevated.
He was put on IV heparin. He went to [facility] today for cardioversion but was found to have WILLIAM thrombus so it was not performed. He remained in atrial fibrillation but rate was better controlled. The plan is to follow him in office next weeks and
repeat YAMILKA in 4 weeks on oral anticoagulation and if need be electrical cardioversion then.
From heart failure with IV diuresis he improved pretty quickly. He was not hypoxic anymore. With newfound cardiomyopathy he went on to have a cardiac catheterization showed no CAD, LVEDP 9 mmHg. With improved respiratory symptoms he was advised
as needed Lasix. He was put on Farxiga as well.
He had abnormal LFTs with AST as high as 1937 which normalized prior to discharge and ALT of 436 which improved to 116. Was seen by GI felt probably multifactorial including alcohol use, fatty liver which is noted on the ultrasound and probably low
flow state from heart failure. Advised to follow LFTs for now.
He was advised strongly to quit alcohol. He was put on alcohol withdrawal program including phenobarbital. He was using Ativan till yesterday but none today. He was given as needed Ativan prescription to use for next 3 days if needed. Case
management referred him to [facility] outpatient rehab program.
Consultants on board:
Cardiology-Rajiv Ingram
Interventional cardiology-Jacky Jang
Discharge Plan
-
Patient Disposition: Home (Routine Discharge)
Discharge Diagnosis/Procedures: New atrial fibrillation with acute heart failure reduced EF, LA thrombus, abnormal LFTs, alcohol use disorder
Diet: Low Sodium
Activity: As tolerated
Driving Restrictions: Not until seen by your Dr
Bathing Restrictions: None
Blood Work: CMP today blood work in 1 week-arrange through her PCP
Specialty Instructions: Weigh Daily- Call MD for wt gain/loss 3 lbs overnight/5 lbs in 1 week
Instructions: *CBC Heart Failure Instructions
Referrals:
Ashley Christy CRNP [Specified Professional Personl, Cardiology] - 02/19/25 10:40 am
Andrwe Perez MD [Family Provider, Family Practice] - in less than 1 week
Prescriptions:
New
metoprolol succinate 100 mg Tablet Extended Release 24 Hr
100 mg PO BID Qty: 60 0RF
folic acid 1 mg Tablet
1 mg PO DAILY Qty: 30 0RF
digoxin 125 mcg (0.125 mg) Tablet
125 mcg PO NOON Qty: 30 0RF
thiamine mononitrate (vit B1) 100 mg Tablet
100 mg PO BID Qty: 60 0RF
Eliquis 5 mg Tablet
5 mg PO BID Qty: 60 0RF
Rx Instructions:
first dose this evening
dapagliflozin propanediol 10 mg Tablet
10 mg PO DAILY Qty: 30 0RF
furosemide 20 mg Tablet
20 mg PO DAILYPRN PRN (Reason: 3 pound weight gain) Qty: 14 0RF
lorazepam [Ativan] 0.5 mg tablet
0.5 mg PO TID PRN (Reason: anxiety or tremor) Qty: 9 0RF
Discharge Orders:
Discharge Patient (As Directed); Ordered 02/16/25
Ordered By: Carlos Han
Care Plan Goals
Care Plan Goals:
Problem: Readiness for enhanced knowledge related to diagnosis and treatment plan
Goal: Understand your diagnosis and treatment plan needs, including medications if applicable.
Instructions: Know your diagnosis, underlying causes and treatment plan options, including medications if applicable. Consult with your health care team to learn about your diagnosis and treatment plan, including medications if applicable.
Discharge Date and Time
Print Language: GERMAN
--- NOTE | 2025-02-16 15:46 | ITS.CL.CATH ---
[facility] - Catheterization
Cardiac Catheterization
Procedure Report:
CARDIAC CATHETERIZATION REPORT
Date of Procedure: 02/16/2025
Referring: Mendoza Horton M.D., Ph.D.
INDICATION: New cardiomyopathy.
PROCEDURE:
1. Left heart catheterization.
2. Coronary angiography
A total of 25 minutes of procedural/moderate sedation was utilized. An independent biomedical analytical scientist was present to assist with and help manage the patient's level of consciousness and physiologic status.
ACCESS:
1. 6 [place] right radial artery using a modified Seldinger technique.
CATHETERS:
1. 5 Macedonian JR4.
2. 5 Macedonian JL 3.5.
HEMODYNAMIC DATA
Weight (kg): 79.4
AO (s/d/x, mmHg): 107/80/94
LV (s/x mmHg): 107/9
LEFT VENTRICULOGRAPHY: Not performed.
CORONARY ANGIOGRAPHY
Dominance: Right.
Left Main: Normal size, trifurcating vessel. There is no coronary artery disease.
LAD: Normal size vessel giving rise to 2 large diagonals. There is no coronary artery disease.
Ramus: Small to medium size vessel that immediately bifurcates into two 1 mm daughter branches. There is no coronary artery disease.
Circumflex: Large size, nondominant vessel giving rise to 2 obtuse marginals. OM1 is a relatively small, 1.5 mm branch. OM 2 is a much larger branch supplying the majority of the inferior lateral wall, bifurcating into 2 daughter branches.
There is no coronary artery disease.
RCA: Large size, dominant vessel with a large posterolateral arcade. There is no coronary artery disease.
INTERVENTION(S)
None.
Closure Device: Vascular band.
Radiation (mGy): 282.46
DAP (cm2.Gy): 24.8587
Fluoroscopy time (minutes): 1.8
CONCLUSIONS
1. Right dominant circulation with no coronary artery disease.
2. Normal filling pressures (LVEDP = 9 mmHg at 79.4 kg).
RECOMMENDATIONS:
1. Expectant management after cardiac catheterization via right radial approach.
2. Limited weight bearing on the right wrist for one week.
3. GDMT/OMT as hemodynamics will tolerate.
4. Start apixaban after hemostasis achieved for the right radial artery.
5. Outpatient EKG to monitor heart rate/rhythm.
6. Evaluate for DC cardioversion with YAMILKA guidance in the future.
Copy to: Mendoza Horton M.D., Ph.D., Rajiv Mcclendon M.D., Andrew Perez M.D.
Jacky Corado DO, FACC, FACP
[2025-02-16] MEDS: TOPROL XL 100 MG PO (16:41)
[2025-02-16] MEDS: LANOXIN 125 MCG PO (17:18)
--- NOTE | 2025-02-16 17:31 | PTCARENOTE ---
pt back post cath. right radial cdi. pt offers no complaints at this time. pt is afib on the monitor, hr in the 120s, vss. pt educated on plan of care.
--- NOTE | 2025-02-16 18:26 | PTCARENOTE ---
d/c instructions read to pt and pt verbalized understanding. iv and tele removed. applied arm sling per dr. chi. pt verbalized understanding of need to wear it. pt left w/ belongings from room and d/c instructions. pt left via wheelchair with
staff.
--- NOTE | 2025-02-17 08:19 | PN.CDI ---
CDI
- -
CDI:
Physician Documentation Request
Admit Date: 02/12/25 13:08
Dear Doctor Guille,
Patient admitted for management of new afib, respiratory failure and heart failure.
LFTs were found to be elevated.
Director Of [employer] consult states 'History of alcohol abuse-reports last drink a ?month ago-cannot rule out alcohol withdrawal...Patient tremulous-anxious.'
MSAS protocol was ordered. score 12 on 02/13. Patient was given phenobarbital and Ativan.
Please provide further specificity as outlined below:
1. Please specify the pattern of use, include all that apply:
- Use, with or without abuse and/or dependence
- Abuse with or without dependence
- Dependence
2. Please identify any associated manifestations
- Withdrawal
- Intoxication: with or without delirium, with or without perceptual disturbance
- Other, please specify
- No manifestations
Use of terms such as suspected, likely, concern for, or probable (associated with a specific diagnosis that is being evaluated, monitored, or treated as if it exists) are acceptable and can be coded in the inpatient setting, when documented at the
time of discharge.
Thank you,
Nena Bush RN, BSN
CDI Specialist
tiger text
Please use your independent medical judgment in providing your response.
--- NOTE | 2025-02-17 08:59 | W.HF.CON ---
Heart Failure
- LV Function
Left ventricular function study result: LV Ejection fraction </= 35%
Ejection Fraction Percentage: 20-25
- ARNI
Patient already on ARNI: No
Heart Failure ARNI Contraindication: Hypotension
- ACEI/ARB
Patient already on ACEI/ARB: No
Heart Failure ACEI/ARB Contraindication: Hypotension
- Beta Shelbie
Patient already on Evidence Based Beta Shelbie: Yes
- Mineralocorticord Receptor Antagonist
Patient already on MRA: No
Heart Failure MRA Contraindication: Hypotension
- SGLT-2 Inhibitor
Patient already on SGLT-2 Inhibitor: Yes
- Afib Anticoagulation
Patient already on Anticoagulation for Afib: Yes
- NYHA CHF Classification
NYHA CHF Classification Level: Class III - Symptoms w/ min exertion, interferes w/ nml daily activity
- ACC/AHA Stage
ACC/AHA Stage: Stage C: Symptomatic Heart Failure
== END 2025-02-16 18:27 | disposition home or self-care (01) | DRG 286 ==
LOC: IVU 13:08
PROVIDERS: Hospitalist; Internal Medicine; Internal Medicine Cardiovascular Disease; Nurse Practitioner; ADMITTING PHYSICIAN Internal Medicine; ATTENDING PHYSICIAN Internal Medicine; CONSULT PHYSICIAN Internal Medicine Cardiovascular Disease; CONSULT PHYSICIAN Internal Medicine Critical Care Medicine; CONSULT PHYSICIAN Internal Medicine Gastroenterology; EMERGENCY PHYSICIAN Emergency Medicine; FAMILY PHYSICIAN Family Medicine
PROC: B2111ZZ Fluoroscopy of Multiple Coronary Arteries using Low Osmolar Contrast (ICD-10-PCS; 2025-02-16)
PROC: B24BZZ4 Ultrasonography of Heart with Aorta, Transesophageal (ICD-10-PCS; 2025-02-16)
PROC: 4A023N7 Measurement of Cardiac Sampling and Pressure, Left Heart, Percutaneous Approach (ICD-10-PCS; 2025-02-16)
DX: I48.91 Unspecified atrial fibrillation (principal); I50.21 Acute systolic (congestive) heart failure; J96.01 Acute respiratory failure with hypoxia; F10.239 Alcohol dependence with withdrawal, unspecified; I5A Non-ischemic myocardial injury (non-traumatic); I11.0 Hypertensive heart disease with heart failure; K76.0 Fatty (change of) liver, not elsewhere classified; I51.3 Intracardiac thrombosis, not elsewhere classified; I42.0 Dilated cardiomyopathy; Z87.891 Personal history of nicotine dependence; Z11.52 Encounter for screening for COVID-19; E87.5 Hyperkalemia; F32.A Depression, unspecified; F41.0 Panic disorder [episodic paroxysmal anxiety]; Y90.1 Blood alcohol level of 20-39 mg/100 ml
CPT/HCPCS: 36600; 71045; 80048; 80053; 80143; 80306; 80307; 81003; 82010; 82077; 82248; 82550; 82805; 82962; 82977; 83605; 83735; 83880; 84100; 84443; 84484; 85025; 85027; 85610; 85730; 86705; 86706; 86709; 86803; 87340; 87502; 87811; 93005; 93306; 93312; 93320; 93325; 93458; 93975; 94660; 96365; 96366; 96367; 96375; 99152; 99153; 99291; 99406; C1894; J1160; Q9950; Q9967

== ENCOUNTER 2025-03-25 08:30 | Day surgery (SDC) | payer OTHER, SELFPAY ==
[2025-03-25 09:43] VITALS: BMI 25.3
== END 2025-03-25 11:29 | disposition home or self-care (01) ==
LOC: CATH 08:30
PROVIDERS: ATTENDING PHYSICIAN Internal Medicine; FAMILY PHYSICIAN Family Medicine
DX: I48.91 Unspecified atrial fibrillation (principal); I08.3 Combined rheumatic disorders of mitral, aortic and tricuspid valves; I44.4 Left anterior fascicular block
CPT/HCPCS: 93312; 93320; 93325; 93005

== ENCOUNTER 2025-05-06 07:06 | Day surgery (SDC) | payer OTHER, SELFPAY ==
[2025-05-06 08:07] VITALS: BMI 27.0
== END 2025-05-06 09:52 | disposition home or self-care (01) ==
LOC: CATH 07:06
PROVIDERS: ATTENDING PHYSICIAN Internal Medicine Cardiovascular Disease; FAMILY PHYSICIAN Family Medicine; OTHER PHYSICIAN Internal Medicine
DX: I48.19 Other persistent atrial fibrillation (principal); I42.8 Other cardiomyopathies; Z79.01 Long term (current) use of anticoagulants; I08.3 Combined rheumatic disorders of mitral, aortic and tricuspid valves; I50.9 Heart failure, unspecified
CPT/HCPCS: 93312; 93320; 93325; 92960